=== PATIENT | female | born 1965 | race Caucasian/White ===

== ENCOUNTER 2022-11-27 22:42 | Inpatient (IN) | payer MEDICAID ==
[~2022-11-27] VITALS: Ht 165.1 cm; Wt 154.7 kg
[2022-11-28] MEDS ORDERED: NS IV 1000 ML 1,000 ML IV SCH ×2 (01:00→02:00)
[2022-11-28] MEDS ORDERED: PIPERACILLIN/Tazobactam 4.5 GM in NS (IVPB) 100 ML 100 ML IV ONE (01:00)
[2022-11-28 01:12] LABS: CLARITY,URINE CLEAR; COLOR,URINE YELLOW; PH,URINE 5.5 (5-9); PROTEIN,URINE NEGATIVE (NEGATIVE)
[2022-11-28 01:13] LABS: BACTERIA,URINE FEW /HPF; BILIRUBIN,URINE NEGATIVE (NEGATIVE); GLUCOSE, URINE (UA) 3+ (NEGATIVE); KETONES,URINE NEGATIVE (NEGATIVE); LEUKOCYTE ESTERASE ,URINE NEGATIVE (NEGATIVE); NITRITE,URINE POSITIVE (NEGATIVE)
[2022-11-28 01:32] LABS: BASOPHILS # (AUTO) 0.1 10^3/uL (0.0-0.1); BASOPHILS % (AUTO) 0 % (0-10); EOSINOPHILS # (AUTO) 0.1 10^3/uL (0.0-0.3); EOSINOPHILS % (AUTO) 1 % (0-10); HEMATOCRIT 45 % (35-52); HEMOGLOBIN 14.4 g/dL (11.5-16.0); LYMPHOCYTES # (AUTO) 3.1 10^3/uL (1.0-4.0); LYMPHOCYTES % (AUTO) 20 % (12-44); MEAN CORPUSCULAR HEMOGLOBIN 26 pg (25-34); MEAN CORPUSCULAR HGB CONC 32 g/dL (32-36); MEAN CORPUSCULAR VOLUME 82 fL (80-99); MEAN PLATELET VOLUME 10.9 fL (9.0-12.2); MONOCYTES # (AUTO) 0.9 10^3/uL (0.0-1.0); MONOCYTES % (AUTO) 6 % (0-12); NEUTROPHILS # (AUTO) 11.6 10^3/uL (1.8-7.8); NEUTROPHILS % (AUTO) 73 % (42-75); PLATELET COUNT 270 10^3/uL (130-400); WHITE BLOOD COUNT 15.9 10^3/uL (4.3-11.0)
[2022-11-28 01:43] LABS: ALBUMIN 3.7 GM/DL (3.2-4.5); POTASSIUM 4.5 MMOL/L (3.6-5.0); PROTHROMBIN TIME PATIENT 12.9 SEC (12.2-14.7)
[2022-11-28 01:47] LABS: BILIRUBIN,TOTAL 0.3 MG/DL (0.1-1.0)
[2022-11-28 01:49] LABS: CREATININE SERUM 1.23 MG/DL (0.60-1.30)
[2022-11-28 01:52] LABS: MAGNESIUM 1.9 MG/DL (1.6-2.4)
[2022-11-28 01:59] LABS: EOSINOPHILS % (MANUAL) 3 %; ERYTHROCYTE SEDIMENTATION RATE 4 MM/HR (0-30); LYMPHOCYTES % (MANUAL) 19 %; MONOCYTES % (MANUAL) 8 %; NEUTROPHILS % (MANUAL) 70 %; RBC MORPH NORMAL
[2022-11-28] MEDS ORDERED: inSUlin (REGULAR) HUMAN 1 UNIT/0.01 ML (CHARGE PER UNIT) IJ ONE (02:00)
[2022-11-28 02:25] LABS: AMPHETAMINE SCREEN, URINE NEGATIVE (NEGATIVE); BARBITURATE SCREEN URINE NEGATIVE (NEGATIVE); CANNABINOID SCREEN, URINE NEGATIVE (NEGATIVE); COCAINE SCREEN URINE NEGATIVE (NEGATIVE); METHADONE STAT NEGATIVE (NEGATIVE); OPIATE SCREEN URINE NEGATIVE (NEGATIVE); OXYCODONE STAT NEGATIVE (NEGATIVE); PROPOXYPHENE STAT NEGATIVE (NEGATIVE); TRICYCLIC ANTIDEPRESSANTS SCRE NEGATIVE (NEGATIVE)
[2022-11-28] MEDS ORDERED: diphenhydrAMINE INJ 50 MG/ML VIAL IVP ONE (02:30)
--- NOTE | 2022-11-28 02:49 | ED General ---
General Chief Complaint: Skin/Wound Problems Stated Complaint: ABD PAIN/ ABSCESS/FOUL SMELLING URINE Nursing Triage Note: PATIENT REPORTS TO ED FOR ABSCESS IN HER GROIN AREA. PER PATIENT ONE OF THEM IS DRAINAING GREEN AND REALLY HURTS. SHE HAS ALSO NOTED FOUL URINE SMELL RECENTLY. PATIENT STATES HER STOMACH IS KILLING HER WELL. PATIENT AMB. WITHOUT DIFFICUTLY. Source of Information: Patient (DIFFICULT HISTORIAN) History of Present Illness Date Seen by Provider: Nov 28, 2022 Time Seen by Provider: 00:50 Allergies and Home Medications Allergies Coded Allergies: Sulfa (Sulfonamide Antibiotics) (Verified Allergy, Intermediate, HIVES , 11/27/22) Penicillins (Verified Allergy, Unknown, 11/27/22) UNKNOWN, ISSUES A BABY diazepam (Verified Allergy, Unknown, MUSCLE STIFFNESS, 11/27/22) haloperidol (Verified Allergy, Unknown, MUSCLE STIFFNESS, 11/27/22) Past Ukvhosj-Pkqwmz-Adozik Hx Patient Social History Tobacco Use?: Yes Tobacco type used: Cigarettes Use of E-Cig and/or Vaping dev: No Substance use?: No Alcohol Use?: No Pt feels they are or have been: No Immunizations Up To Date Influenza Vaccine Up-to-Date: Yes; Up-to-Date First/Initial COVID19 Vaccinat: 2020 Second COVID19 Vaccination Jr: 2021 COVID19 Vaccine Inspector Floor Sub Assembly: unknown Past Medical History Surgery/Hospitalization HX: pmhx-[id number], HIDRADENITIS SUPPURATIVA, CHOLESTEROL SURG.-ABSCESS SURG., BREAST REDUCTION, RIGHT KNEE REPLACEMENT, HYST., GALLBLADDER, APPENDIX Physical Exam Vital Signs Vital Signs - First Documented 11/27/22 23:15 Temp 36.6 Pulse 104 Resp 20 B/P (MAP) 145/75 (98) Pulse Ox 95 O2 Delivery Room Air Capillary Refill : Less Than 3 Seconds Height, Weight, BMI Height: '" Weight: lbs. oz. kg; 54.00 BMI Method: Focused Exam Lactate Level 11/28/22 01:10: Lactic Acid Level 2.54*H Lactic Acid Level Laboratory Tests Test 11/28/22 01:10 Lactic Acid Level 2.54 MMOL/L (0.50-2.00) *H Progress/Results/Core Measures Suspected Sepsis SIRS Temperature: Pulse: 104 Respiratory Rate: 20 Laboratory Tests 11/28/22 01:10: White Blood Count 15.9H Blood Pressure 145 /75 Mean: 98 11/28/22 01:10: Lactic Acid Level 2.54*H Laboratory Tests 11/28/22 01:10: Creatinine 1.23, INR Comment 1.0, Platelet Count 270, Total Bilirubin 0.3 Results/Orders Lab Results Laboratory Tests Test 11/28/22 00:45 11/28/22 01:10 Range/Units Urine Color YELLOW Urine Clarity CLEAR Urine pH 5.5 5-9 Urine Specific [place] 1.010 L 1.016-1.022 Urine Protein NEGATIVE NEGATIVE Urine Glucose (UA) 3+ H NEGATIVE Urine Ketones NEGATIVE NEGATIVE Urine Nitrite POSITIVE H NEGATIVE Urine Bilirubin NEGATIVE NEGATIVE Urine Urobilinogen 0.2 < = 1.0 MG/DL Urine Leukocyte Esterase NEGATIVE NEGATIVE Urine RBC (Auto) NEGATIVE NEGATIVE Urine RBC NONE /HPF Urine WBC 10-25 H /HPF Urine Crystals NONE /LPF Urine Bacteria FEW H /HPF Urine Casts NONE /LPF Urine Mucus NEGATIVE /LPF Urine Culture Indicated CULTURE PENDING Urine Opiates Screen NEGATIVE NEGATIVE Urine Oxycodone Screen NEGATIVE NEGATIVE Urine Methadone Screen NEGATIVE NEGATIVE Urine Propoxyphene Screen NEGATIVE NEGATIVE Urine Barbiturates Screen NEGATIVE NEGATIVE Ur Tricyclic Antidepressants Screen NEGATIVE NEGATIVE Urine Phencyclidine Screen NEGATIVE NEGATIVE Urine Amphetamines Screen NEGATIVE NEGATIVE Urine Methamphetamines Screen NEGATIVE NEGATIVE Urine Benzodiazepines Screen NEGATIVE NEGATIVE Urine Cocaine Screen NEGATIVE NEGATIVE Urine Cannabinoids Screen NEGATIVE NEGATIVE White Blood Count 15.9 H 4.3-11.0 10^3/uL Red Blood Count 5.52 H 3.80-5.11 10^6/uL Hemoglobin 14.4 11.5-16.0 g/dL Hematocrit 45 35-52 % Mean Corpuscular Volume 82 80-99 fL Mean Corpuscular Hemoglobin 26 25-34 pg Mean Corpuscular Hemoglobin Concent 32 32-36 g/dL Red Cell Distribution Width 16.8 H 10.0-14.5 % Platelet Count 270 130-400 10^3/uL Mean Platelet Volume 10.9 9.0-12.2 fL Immature Granulocyte % (Auto) 0 % Neutrophils (%) (Auto) 73 42-75 % Lymphocytes (%) (Auto) 20 12-44 % Monocytes (%) (Auto) 6 0-12 % Eosinophils (%) (Auto) 1 0-10 % Basophils (%) (Auto) 0 0-10 % Neutrophils # (Auto) 11.6 H 1.8-7.8 10^3/uL Lymphocytes # (Auto) 3.1 1.0-4.0 10^3/uL Monocytes # (Auto) 0.9 0.0-1.0 10^3/uL Eosinophils # (Auto) 0.1 0.0-0.3 10^3/uL Basophils # (Auto) 0.1 0.0-0.1 10^3/uL Immature Granulocyte # (Auto) 0.1 0.0-0.1 10^3/uL Neutrophils % (Manual) 70 % Lymphocytes % (Manual) 19 % Monocytes % (Manual) 8 % Eosinophils % (Manual) 3 % Blood Morphology Comment NORMAL Erythrocyte Sedimentation Rate 4 0-30 MM/HR Prothrombin Time 12.9 12.2-14.7 SEC INR Comment 1.0 0.8-1.4 Activated Partial Thromboplast Time 32 24-35 SEC Sodium Level 130 L 135-145 MMOL/L Potassium Level 4.5 3.6-5.0 MMOL/L Chloride Level 95 L 98-107 MMOL/L Carbon Dioxide Level 23 21-32 MMOL/L Anion Gap 12 5-14 MMOL/L Blood Urea Nitrogen 14 7-18 MG/DL Creatinine 1.23 0.60-1.30 MG/DL Estimat Glomerular Filtration Rate 52 BUN/Creatinine Ratio 11 Glucose Level 592 *H 70-105 MG/DL Lactic Acid Level 2.54 *H 0.50-2.00 MMOL/L Calcium Level 9.0 8.5-10.1 MG/DL Corrected Calcium 9.2 8.5-10.1 MG/DL Magnesium Level 1.9 1.6-2.4 MG/DL Total Bilirubin 0.3 0.1-1.0 MG/DL Aspartate Amino Transf (AST/SGOT) 13 5-34 U/L Alanine Aminotransferase (ALT/SGPT) 24 0-55 U/L Alkaline Phosphatase 109 40-136 U/L C-Reactive Protein High Sensitivity 0.90 H 0.00-0.50 MG/DL Total Protein 7.0 6.4-8.2 GM/DL Albumin 3.7 3.2-4.5 GM/DL Serum Alcohol < 10 <10 MG/DL My Orders Orders - PARK HEAD DO Ed Iv/Invasive Line Start (11/28/22 00:51) Monitor-Rhythm Ecg Trace Only (11/28/22 00:51) Cbc With Automated Diff (11/28/22 00:51) Comprehensive Metabolic Panel (11/28/22 00:51) Hs C Reactive Protein (11/28/22 00:51) Magnesium (11/28/22 00:51) Ua Culture If Indicated (11/28/22 00:51) Erythrocyte Sedimentation Rate (11/28/22 00:51) Blood Culture (11/28/22 00:51) Urine Culture (11/28/22 00:51) Protime With Inr (11/28/22 00:51) Partial Thromboplastin Time (11/28/22 00:51) Chest 1 View, Ap/Pa Only (11/28/22 00:51) Ed Iv/Invasive Line Start (11/28/22 00:51) Ed Iv/Invasive Line Start (11/28/22 00:51) Vital Signs Adult Sepsis Patie Q15M (11/28/22 00:51) O2 (11/28/22 00:51) Remove Rings In Anticipation O (11/28/22 00:51) Wound Culture (11/28/22 00:51) Lactic Acid Analyzer (11/28/22 00:51) Ns Iv 1000 Ml (Ns Iv 1000 Ml) (11/28/22 01:00) Piperacillin/Tazobactam (Piperacillin/Ta (11/28/22 01:00) Vancomycin Injection (Vancomycin Injecti (11/28/22 01:00) Manual Differential (11/28/22 01:10) Ct Pelvis W (11/28/22 01:51) Insulin (Regular) Per Unit (Insulin (Reg (11/28/22 02:00) Ed Iv/Invasive Line Start (11/28/22 01:59) Ns Iv 1000 Ml (Ns Iv 1000 Ml) (11/28/22 02:00) Alcohol (11/28/22 01:59) Drug Screen Stat (Urine) (11/28/22 01:59) Diphenhydramine Injection (Diphenhydram (11/28/22 02:30) Medications Given in ED Current Medications Medications Dose Ordered Sig/Fuad Route Start Time Stop Time Status Last Admin Dose Admin Diphenhydramine HCl 25 mg ONCE ONCE IVP 11/28/22 02:30 11/28/22 02:31 DC 11/28/22 02:35 25 MG Insulin Human Regular 20 unit ONCE ONCE IJ 11/28/22 02:00 11/28/22 02:01 DC 11/28/22 02:38 20 UNIT Piperacillin Sod/ Tazobactam Sod 4.5 gm/Sodium Chloride 100 ml @ 200 mls/hr ONCE ONCE IV 11/28/22 01:00 11/28/22 01:29 DC 11/28/22 01:49 200 MLS/HR Vital Signs/I&O 11/27/22 23:15 Temp 36.6 Pulse 104 Resp 20 B/P (MAP) 145/75 (98) Pulse Ox 95 O2 Delivery Room Air Capillary Refill : Less Than 3 Seconds Blood Pressure Mean: 98 Departure Departure-Patient Inst. Referrals: NO,LOCAL PHYSICIAN (PCP/Family) Primary Care Physician PARK HEAD DO Nov 28, 2022 02:49
[2022-11-28] MEDS: VANCOMYCIN INJECTION 1,000 MG in NS (IVPB) 250 ML 250 ML IV SCH ×2 (02:59→04:16)
[2022-11-28] MEDS ORDERED: KETOROLAC INJ 30 MG/ML VIAL IVP ONE (04:45)
--- NOTE | 2022-11-28 06:26 | Diagnostic Imaging Report ---
EXAMINATION: Chest 1 view HISTORY: SEPSIS COMPARISON: None available. FINDINGS: Heart size and pulmonary vasculature are normal. There are patchy interstitial opacities within the mid and lower lungs. No pleural effusion or pneumothorax. Right-sided Jphm-T-jyrquuwg is present. Degenerative changes of the thoracic spine. Osseous structures are otherwise intact. IMPRESSION: 1. Patchy interstitial opacities within the mid and lower lungs could be seen with pulmonary edema or pneumonia. Dictated by: Dictated on workstation # [id number]
--- NOTE | 2022-11-28 06:41 | Diagnostic Imaging Report ---
PROCEDURE: CT pelvis without contrast. TECHNIQUE: Multiple contiguous axial images were obtained through the pelvis without the use of intravenous contrast. Sagittal and coronal reformations were performed. Auto Exposure Controls were utilized during the CT exam to meet ALARA standards for radiation dose reduction. INDICATION: Hidradenitis cellulitis versus abscess, infection. COMPARISON: None available. FINDINGS: Minimal vascular calcifications. Visualized portions of the aorta are non-aneurysmal. The visualized portions of the bilateral kidneys and ureters are unremarkable. The urinary bladder is unremarkable. The uterus is not visualized, likely surgically absent. No abnormal adnexal mass lesion. No bowel obstruction. Mild skin thickening and subcutaneous fat stranding is identified within the perineal and perianal soft tissues extending into the left greater than right inguinal regions. No discrete soft tissue gas. No focal fluid collection. No significant adenopathy. No free air or free fluid within the intraperitoneal pelvis. No acute osseous abnormality. Scattered degenerative changes within the osseous structures with disc bulge at L5/S1 with resulting at least mild central canal stenosis. IMPRESSION: Mild skin thickening and subcutaneous fat stranding within the perianal and perineal soft tissues extending into the bilateral inguinal regions. Though nonspecific, this most likely relates to underlying cellulitis. No definite focal fluid collection or soft tissue gas. Recommend direct visualization and clinical correlation. I agree with the preliminary interpretation. Dictated by: Dictated on workstation # [id number]
[2022-11-28 08:15] VITALS: BP 112/58
[2022-11-28] MEDS ORDERED: diphenhydrAMINE INJ 50 MG/ML VIAL IV PRN (08:30)
[2022-11-28] MEDS: NS IV 1000 ML 1,000 ML IV SCH ×3 (09:38→23:28)
[2022-11-28] MEDS: PIPERACILLIN/Tazobactam 4.5 GM in NS (IVPB) 100 ML 100 ML IV SCH ×2 (09:40→16:33)
--- NOTE | 2022-11-28 10:21 | Consultation - Surgery ---
GER[place] KAMARA 11/28/22 1020: History of Present Illness History of Present Illness Patient Consulted On(delfina/time) 11/28/22 10:13 Date Seen by Provider: Nov 28, 2022 Time Seen by Provider: 10:13 Reason for Visit: abscesses on groin, upper right arm, right foot History of Present Illness Pt states she has come in because of a couple abscesses on her groin. Pt states one of them has been there for 4 months and the other she noticed a week ago. She also has an abscess on her right foot and right upper arm. Pt states she has a history of these abscesses. The nurse relays she also has sepsis, UTI, cellulitis, diabetes. Pts last glucose level taken today was 312. Pt states her abscesses are painful. Allergies and Home Medications Allergies Coded Allergies: Sulfa (Sulfonamide Antibiotics) (Verified Allergy, Intermediate, HIVES , 11/27/22) Penicillins (Verified Allergy, Unknown, 11/27/22) UNKNOWN, ISSUES A BABY diazepam (Verified Allergy, Unknown, MUSCLE STIFFNESS, 11/27/22) haloperidol (Verified Allergy, Unknown, MUSCLE STIFFNESS, 11/27/22) Past Ltvsrge-Zuabvx-Wiuwjw Hx Patient Social History Smoking Status: Current Everyday Smoker Type Used: Cigars, Cigarettes 2nd Hand Smoke Exposure: Yes Recent Hopitalizations: No Alcohol Use?: No Have you traveled recently?: No Surgeries History of Surgeries: Yes Surgeries: Abdominal (gallbladder and appendix removed), Hysterectomy, Orthopedic (right knee replacement twice) Respiratory History of Respiratory Disorde: Yes Respiratory Disorders: COPD (pt says she has COPD) Cardiovascular History of Cardiac Disorders: No Neurological History of Neurological Disord: No Reproductive System : No Genitourinary History of Genitourinary Disor: Yes Genitourinary Disorders: UTI-Chronic Gastrointestinal History of Gastrointestinal Di: Yes Gastrointestinal Disorders: Gall Bladder Disease Musculoskeletal History of Musculoskeletal Dis: No Endocrine Endocrine Disorders: Diabetes, Insulin dep HEENT HEENT Disorders: Cataract Cancer History of Cancer: No Psychosocial Behavioral Health Disorders: Anxiety (pt says she takes Xanax), Depression Integumentary History of Skin or Integumenta: Yes Skin/Integumentary Disorders: Recent Skin Changes (labial abscesses, right upper arm abscess, right foot abscess) Family Medical History Significant Family History: Cancer (sister. unknown kind), Diabetes (dad) Review of Systems-General Constitutional: No chills, No fever EENTM: No hearing loss, No double vision Respiratory: cough; No short of breath Cardiovascular: No chest pain, No palpitations Gastrointestinal: abdominal pain (pt says her whole stomach hurts), nausea, vomiting (pt says she has vomited off and on for the last week and a half) : No Skin: change in color; No hx of skin cancer; lesions (abscesses on labia and right upper arm and right foot) Psychiatric/Neurological: Anxiety, Depressed, Numbness (peripheral neuropathy in her feet) Physical Exam-General Problems Physical Exam Vital Signs Vital Signs - First Documented 11/27/22 11/28/22 23:15 01:10 Temp 36.6 Pulse 104 Resp 20 B/P (MAP) 145/75 (98) Pulse Ox 95 O2 Delivery Room Air O2 Flow Rate 4.00 Capillary Refill : Less Than 3 Seconds General Appearance: mild distress, obese (very) Neck: non-tender Respiratory: lungs clear, no respiratory distress, no accessory muscle use Cardiovascular: no JVD, no murmur, tachycardia (HR 104) Peripheral Pulses: 2+ Carotid (R), 2+ Carotid (L), 2+ Dorsalis Pedis (R), 2+ Left Dors-Pedis (L), 2+ Radial Pulses (R), 2+ Radial Pulses (L) Gastrointestinal: non tender, soft, other (no tenderness on palpation but pt states her abdomen just hurts in general all over) Extremities: other (abscess on right upper arm and right foot) Neurologic/Psychiatric: alert, oriented x 3 Skin: warm/dry, other (abscesses on labia (nurse saw), right upper arm, and right foot) Data Review Labs Laboratory Tests 11/28/22 00:45: Urine Color YELLOW, Urine Clarity CLEAR, Urine pH 5.5, Urine Specific [place] 1.010L, Urine Protein NEGATIVE, Urine Glucose (UA) 3+H, Urine Ketones NEGATIVE, Urine Nitrite POSITIVEH, Urine Bilirubin NEGATIVE, Urine Urobilinogen 0.2, Urine Leukocyte Esterase NEGATIVE, Urine RBC (Auto) NEGATIVE, Urine RBC NONE, Urine WBC 10-25H, Urine Crystals NONE, Urine Bacteria FEWH, Urine Casts NONE, Urine Mucus NEGATIVE, Urine Culture Indicated CULTURE PENDING, Urine Opiates Screen NEGATIVE, Urine Oxycodone Screen NEGATIVE, Urine Methadone Screen NEGATIVE, Urine Propoxyphene Screen NEGATIVE, Urine Barbiturates Screen NEGATIVE, Ur Tricyclic Antidepressants Screen NEGATIVE, Urine Phencyclidine Screen NEGATIVE, Urine Amphetamines Screen NEGATIVE, Urine Methamphetamines Screen NEGATIVE, Urine Benzodiazepines Screen NEGATIVE, Urine Cocaine Screen NEGATIVE, Urine Cannabinoids Screen NEGATIVE 11/28/22 01:10: White Blood Count 15.9H, Red Blood Count 5.52H, Hemoglobin 14.4, Hematocrit 45, Mean Corpuscular Volume 82, Mean Corpuscular Hemoglobin 26, Mean Corpuscular Hemoglobin Concent 32, Red Cell Distribution Width 16.8H, Platelet Count 270, Mean Platelet Volume 10.9, Immature Granulocyte % (Auto) 0, Neutrophils (%) (Auto) 73, Lymphocytes (%) (Auto) 20, Monocytes (%) (Auto) 6, Eosinophils (%) (Auto) 1, Basophils (%) (Auto) 0, Neutrophils # (Auto) 11.6H, Lymphocytes # (Auto) 3.1, Monocytes # (Auto) 0.9, Eosinophils # (Auto) 0.1, Basophils # (Auto) 0.1, Immature Granulocyte # (Auto) 0.1, Neutrophils % (Manual) 70, Lymphocytes % (Manual) 19, Monocytes % (Manual) 8, Eosinophils % (Manual) 3, Blood Morphology Comment NORMAL, Erythrocyte Sedimentation Rate 4, Prothrombin Time 12.9, INR Comment 1.0, Activated Partial Thromboplast Time 32, Sodium Level 130L, Potassium Level 4.5, Chloride Level 95L, Carbon Dioxide Level 23, Anion Gap 12, Blood Urea Nitrogen 14, Creatinine 1.23, Estimat Glomerular Filtration Rate 52, BUN/Creatinine Ratio 11, Glucose Level 592*H, Lactic Acid Level 2.54*H, Calcium Level 9.0, Corrected Calcium 9.2, Magnesium Level 1.9, Total Bilirubin 0.3, Aspartate Amino Transf (AST/SGOT) 13, Alanine Aminotransferase (ALT/SGPT) 24, Alkaline Phosphatase 109, C-Reactive Protein High Sensitivity 0.90H, Total Protein 7.0, Albumin 3.7, Serum Alcohol < 10 11/28/22 04:42: Lactic Acid Level 2.53*H, Glucometer 159H 11/28/22 07:30: Lactic Acid Level 0.99 Assessment/Plan Assessment/Plan Assessment/Plan Labial abscess - incision and drainage Right upper arm abscess - conservative management, warm compress, keep clean Right foot abscess - conservative management, warm compress, keep clean Diabetes, glucose currently 312 UTI Sepsis Smoking Incise and drain the labial abscesses and transfer to medical management for other chronic conditions. TOSHIA WEI DO 11/28/22 1537: History of Present Illness History of Present Illness Time Seen by Provider: 13:21 History of Present Illness Surgery asked to consult regarding multiple abscesses. HPI per ED: PATIENT REPORTS TO ED FOR ABSCESS IN HER GROIN AREA. PER PATIENT ONE OF THEM IS DRAINAING GREEN AND REALLY HURTS. SHE HAS ALSO NOTED FOUL URINE SMELL RECENTLY. PATIENT STATES HER STOMACH IS KILLING HER WELL. PATIENT AMB. WITHOUT DIFFICUTLY. When I saw pt this afternoon, she was sitting up in bed eating lunch. Main complaint was of the pain in the left labial area. States her pain is not being controlled. She rates the pain as at least 8 out of 10. She states she gets these all the time. Allergies and Home Medications Allergies Coded Allergies: Sulfa (Sulfonamide Antibiotics) (Verified Allergy, Intermediate, HIVES , 11/27/22) Penicillins (Verified Allergy, Unknown, 11/27/22) UNKNOWN, ISSUES A BABY diazepam (Verified Allergy, Unknown, MUSCLE STIFFNESS, 11/27/22) haloperidol (Verified Allergy, Unknown, MUSCLE STIFFNESS, 11/27/22) Patient Home Medication List Home Medication List Reviewed: Yes Past Rntfpuu-Epcuvs-Fhwdha Hx Patient Social History Smoking Status: Current Everyday Smoker 2nd Hand Smoke Exposure: Yes Recent Hopitalizations: No Have you traveled recently?: No Surgeries History of Surgeries: Yes Surgeries: Abdominal (gallbladder and appendix removed), Hysterectomy, Orthopedic (right knee replacement twice) Respiratory History of Respiratory Disorde: Yes Respiratory Disorders: COPD (pt says she has COPD) Cardiovascular History of Cardiac Disorders: No Neurological History of Neurological Disord: No Reproductive System : No Genitourinary History of Genitourinary Disor: Yes Genitourinary Disorders: UTI-Chronic Gastrointestinal History of Gastrointestinal Di: Yes Gastrointestinal Disorders: Gall Bladder Disease Musculoskeletal History of Musculoskeletal Dis: No Endocrine History of Endocrine Disorders: Yes Endocrine Disorders: Diabetes, Insulin dep HEENT History of HEENT Disorders: Yes HEENT Disorders: Cataract Hearing Impairment: Denies Cancer History of Cancer: No Psychosocial History of Psychiatric Problem: Yes Behavioral Health Disorders: Anxiety (pt says she takes Xanax), Depression Integumentary History of Skin or Integumenta: Yes Skin/Integumentary Disorders: Recent Skin Changes (labial abscesses, right upper arm abscess, right foot abscess) Family Medical History Significant Family History: Cancer (sister. unknown kind), Diabetes (dad) Review of Systems-General Constitutional: No chills, No fever EENTM: No hearing loss, No double vision Respiratory: cough; No short of breath Cardiovascular: No chest pain, No palpitations Gastrointestinal: abdominal pain (pt says her whole stomach hurts), nausea, vomiting (pt says she has vomited off and on for the last week and a half) : No Skin: change in color; No hx of skin cancer; lesions (abscesses on labia and right upper arm and right foot) Psychiatric/Neurological: Anxiety, Depressed, Numbness (peripheral neuropathy in her feet); Denies Tremors Physical Exam-General Problems Physical Exam General Appearance: mild distress, obese (super morbidly) Eyes: Bilateral Eye PERRL, Bilateral Eye EOMI HEENT: pharynx normal; No scleral icterus (R), No scleral icterus (L) Neck: non-tender, supple Respiratory: lungs clear, normal breath sounds, no respiratory distress, no accessory muscle use Cardiovascular: no murmur, tachycardia (HR 104) Gastrointestinal: non tender, soft, other (no tenderness on palpation but pt states her abdomen just hurts in general all over) Back: no CVA tenderness, no vertebral tenderness Extremities: no pedal edema, no calf tenderness, other (abscess on right upper arm and right foot) Neurologic/Psychiatric: alert, oriented x 3 Skin: warm/dry, other (abscesses on labia left side; with erythema, swelling and tender to palapation. Under right upper arm is healing abscess with necrotic center. Has signs of hidradentitis in both axilla, and right foot) Data Review Radiology Date of Exam:11/28/22 CT PELVIS WO PROCEDURE: CT pelvis without contrast. TECHNIQUE: Multiple contiguous axial images were obtained through the pelvis without the use of intravenous contrast. Sagittal and coronal reformations were performed. Auto Exposure Controls were utilized during the CT exam to meet ALARA standards for radiation dose reduction. INDICATION: Hidradenitis cellulitis versus abscess, infection. COMPARISON: None available. FINDINGS: Minimal vascular calcifications. Visualized portions of the aorta are non-aneurysmal. The visualized portions of the bilateral kidneys and ureters are unremarkable. The urinary bladder is unremarkable. The uterus is not visualized, likely surgically absent. No abnormal adnexal mass lesion. No bowel obstruction. Mild skin thickening and subcutaneous fat stranding is identified within the perineal and perianal soft tissues extending into the left greater than right inguinal regions. No discrete soft tissue gas. No focal fluid collection. No significant adenopathy. No free air or free fluid within the intraperitoneal pelvis. No acute osseous abnormality. Scattered degenerative changes within the osseous structures with disc bulge at L5/S1 with resulting at least mild central canal stenosis. IMPRESSION: Mild skin thickening and subcutaneous fat stranding within the perianal and perineal soft tissues extending into the bilateral inguinal regions. Though nonspecific, this most likely relates to underlying cellulitis. No definite focal fluid collection or soft tissue gas. Recommend direct visualization and clinical correlation. I agree with the preliminary interpretation. Dictated on workstation # [id number] Dict: 11/28/22 0624 Trans: 11/28/22 [id number] [id number] Interpreted by: ARACELIS HERMAN MD Assessment/Plan Assessment/Plan Assessment/Plan Labial abscess - incision and drainage Right upper arm abscess - conservative management, warm compress, keep clean Right foot abscess - conservative management, warm compress, keep clean Diabetes, glucose currently 312 UTI Sepsis Smoking Incise and drain the labial abscesses and transfer to medical management for other chronic conditions. Continue with IV ABX and will add some IV pain meds. Supervisory-Addendum Brief Verification & Attestation Participated in pt care: history, MDM, physical Personally performed: exam, history, MDM, supervision of care Care discussed with: Medical Student Procedures: n/a Verification and Attestation of Medical Student E/M Service A medical student performed and documented this service. I then reviewed and verified all information documented by the medical student and made modifications to such information, when appropriate. I personally performed a physical exam, medical decision making and then discussed any differences between the notes and made revisions as necessary to create one note. Toshia Wei , 11/28/22 , 15:47 [place] KAMARA Nov 28, 2022 10:20 TOSHIA WEI DO Nov 28, 2022 15:37
[2022-11-28] MEDS ORDERED: inSUlin ASPART 1 UNIT/0.01 ML (PER UNIT) SC SCH (11:00)
[2022-11-28] MEDS: VANCOMYCIN 1500MG/300ML PREMIX IV SCH ×2 (11:01→23:28)
[2022-11-28 11:23] VITALS: BP 131/63
[2022-11-28] MEDS ORDERED: NICOTINE 14 MG PATCH TD ONE (12:30)
[2022-11-28] MEDS ORDERED: PRAMIPEXOLE 0.5 MG TABLET PO ONE (12:30)
[2022-11-28] MEDS ORDERED: inSUlin DETERMIR 1 UNIT/0.01 ML (CHARGE PER UNIT) SQ ONE (12:30)
[2022-11-28 14:13] VITALS: BP 131/63
[2022-11-28] MEDS: oxyCODONE IMMEDIATE RELEASE 5 MG TABLET PO PRN ×2 (14:13→20:19)
[2022-11-28] MEDS: PREGABALIN 100 MG CAPSULE PO SCH ×3 (14:13→20:16)
[2022-11-28] MEDS: inSUlin ASPART 1 UNIT/0.01 ML (PER UNIT) SC SCH ×3 (15:14→20:24)
[2022-11-28] MEDS: ACETAMINOPHEN 500 MG TABLET PO PRN (15:15)
[2022-11-28] MEDS: ONDANSETRON INJECTION 4 MG/2 ML (SDV) IV PRN (15:15)
--- NOTE | 2022-11-28 15:50 | Consultation - Surgery ---
History of Present Illness History of Present Illness Patient Consulted On(delfina/time) 11/28/22 15:48 Reason for Visit: abscesses on groin, upper right arm, right foot History of Present Illness Surgery asked to consult regarding multiple abscesses. HPI per ED: PATIENT REPORTS TO ED FOR ABSCESS IN HER GROIN AREA. PER PATIENT ONE OF THEM IS DRAINAING GREEN AND REALLY HURTS. SHE HAS ALSO NOTED FOUL URINE SMELL RECENTLY. PATIENT STATES HER STOMACH IS KILLING HER WELL. PATIENT AMB. WITHOUT DIFFICUTLY. When I saw pt this afternoon, she was sitting up in bed eating lunch. Main complaint was of the pain in the left labial area. States her pain is not being controlled. She rates the pain as at least 8 out of 10. She states she gets these all the time. Allergies and Home Medications Allergies Coded Allergies: Sulfa (Sulfonamide Antibiotics) (Verified Allergy, Intermediate, HIVES , 11/27/22) Penicillins (Verified Allergy, Unknown, 11/27/22) UNKNOWN, ISSUES A BABY diazepam (Verified Allergy, Unknown, MUSCLE STIFFNESS, 11/27/22) haloperidol (Verified Allergy, Unknown, MUSCLE STIFFNESS, 11/27/22) Past Dpwzfmd-Uaauye-Tyauww Hx Patient Social History Smoking Status: Current Everyday Smoker Type Used: Cigars, Cigarettes 2nd Hand Smoke Exposure: Yes Recent Hopitalizations: No Alcohol Use?: No Have you traveled recently?: No Surgeries History of Surgeries: Yes Surgeries: Abdominal (gallbladder and appendix removed), Hysterectomy, Orthopedic (right knee replacement twice) Respiratory History of Respiratory Disorde: Yes Respiratory Disorders: COPD (pt says she has COPD) Cardiovascular History of Cardiac Disorders: No Neurological History of Neurological Disord: No Reproductive System : No Genitourinary History of Genitourinary Disor: Yes Genitourinary Disorders: UTI-Chronic Gastrointestinal History of Gastrointestinal Di: Yes Gastrointestinal Disorders: Gall Bladder Disease Musculoskeletal History of Musculoskeletal Dis: No Endocrine History of Endocrine Disorders: Yes Endocrine Disorders: Diabetes, Insulin dep HEENT History of HEENT Disorders: Yes HEENT Disorders: Cataract Hearing Impairment: Denies Cancer History of Cancer: No Psychosocial History of Psychiatric Problem: Yes Behavioral Health Disorders: Anxiety (pt says she takes Xanax), Depression Integumentary History of Skin or Integumenta: Yes Skin/Integumentary Disorders: Recent Skin Changes (labial abscesses, right upper arm abscess, right foot abscess) Family Medical History Significant Family History: Cancer (sister. unknown kind), Diabetes (dad) Physical Exam-General Problems Physical Exam Vital Signs Vital Signs - First Documented 11/27/22 11/28/22 23:15 01:10 Temp 36.6 Pulse 104 Resp 20 B/P (MAP) 145/75 (98) Pulse Ox 95 O2 Delivery Room Air O2 Flow Rate 4.00 Capillary Refill : Less Than 3 Seconds Data Review Labs Laboratory Tests 11/28/22 00:45: Urine Color YELLOW, Urine Clarity CLEAR, Urine pH 5.5, Urine Specific [place] 1.010L, Urine Protein NEGATIVE, Urine Glucose (UA) 3+H, Urine Ketones NEGATIVE, Urine Nitrite POSITIVEH, Urine Bilirubin NEGATIVE, Urine Urobilinogen 0.2, Urine Leukocyte Esterase NEGATIVE, Urine RBC (Auto) NEGATIVE, Urine RBC NONE, Urine WBC 10-25H, Urine Crystals NONE, Urine Bacteria FEWH, Urine Casts NONE, Urine Mucus NEGATIVE, Urine Culture Indicated CULTURE PENDING, Urine Opiates Screen NEGATIVE, Urine Oxycodone Screen NEGATIVE, Urine Methadone Screen NEGATIVE, Urine Propoxyphene Screen NEGATIVE, Urine Barbiturates Screen NEGATIVE, Ur Tricyclic Antidepressants Screen NEGATIVE, Urine Phencyclidine Screen NEGATIVE, Urine Amphetamines Screen NEGATIVE, Urine Methamphetamines Screen NEGATIVE, Urine Benzodiazepines Screen NEGATIVE, Urine Cocaine Screen NEGATIVE, Urine Cannabinoids Screen NEGATIVE 11/28/22 01:10: White Blood Count 15.9H, Red Blood Count 5.52H, Hemoglobin 14.4, Hematocrit 45, Mean Corpuscular Volume 82, Mean Corpuscular Hemoglobin 26, Mean Corpuscular Hemoglobin Concent 32, Red Cell Distribution Width 16.8H, Platelet Count 270, Mean Platelet Volume 10.9, Immature Granulocyte % (Auto) 0, Neutrophils (%) (Auto) 73, Lymphocytes (%) (Auto) 20, Monocytes (%) (Auto) 6, Eosinophils (%) (Auto) 1, Basophils (%) (Auto) 0, Neutrophils # (Auto) 11.6H, Lymphocytes # (Auto) 3.1, Monocytes # (Auto) 0.9, Eosinophils # (Auto) 0.1, Basophils # (Auto) 0.1, Immature Granulocyte # (Auto) 0.1, Neutrophils % (Manual) 70, Lymphocytes % (Manual) 19, Monocytes % (Manual) 8, Eosinophils % (Manual) 3, Blood Morphology Comment NORMAL, Erythrocyte Sedimentation Rate 4, Prothrombin Time 12.9, INR Comment 1.0, Activated Partial Thromboplast Time 32, Sodium Level 130L, Potassium Level 4.5, Chloride Level 95L, Carbon Dioxide Level 23, Anion Gap 12, Blood Urea Nitrogen 14, Creatinine 1.23, Estimat Glomerular Filtration Rate 52, BUN/Creatinine Ratio 11, Glucose Level 592*H, Lactic Acid Level 2.54*H, Calcium Level 9.0, Corrected Calcium 9.2, Magnesium Level 1.9, Total Bilirubin 0.3, Aspartate Amino Transf (AST/SGOT) 13, Alanine Aminotransferase (ALT/SGPT) 24, Alkaline Phosphatase 109, C-Reactive Protein High Sensitivity 0.90H, Total Protein 7.0, Albumin 3.7, Serum Alcohol < 10 11/28/22 04:42: Lactic Acid Level 2.53*H, Glucometer 159H 11/28/22 07:30: Lactic Acid Level 0.99 11/28/22 10:41: Glucometer 312H 11/28/22 15:06: Glucometer 286H Microbiology 11/28/22 Urine Culture - Preliminary, Resulted Probable E.coli Radiology Date of Exam:11/28/22 CT PELVIS WO PROCEDURE: CT pelvis without contrast. TECHNIQUE: Multiple contiguous axial images were obtained through the pelvis without the use of intravenous contrast. Sagittal and coronal reformations were performed. Auto Exposure Controls were utilized during the CT exam to meet ALARA standards for radiation dose reduction. INDICATION: Hidradenitis cellulitis versus abscess, infection. COMPARISON: None available. FINDINGS: Minimal vascular calcifications. Visualized portions of the aorta are non-aneurysmal. The visualized portions of the bilateral kidneys and ureters are unremarkable. The urinary bladder is unremarkable. The uterus is not visualized, likely surgically absent. No abnormal adnexal mass lesion. No bowel obstruction. Mild skin thickening and subcutaneous fat stranding is identified within the perineal and perianal soft tissues extending into the left greater than right inguinal regions. No discrete soft tissue gas. No focal fluid collection. No significant adenopathy. No free air or free fluid within the intraperitoneal pelvis. No acute osseous abnormality. Scattered degenerative changes within the osseous structures with disc bulge at L5/S1 with resulting at least mild central canal stenosis. IMPRESSION: Mild skin thickening and subcutaneous fat stranding within the perianal and perineal soft tissues extending into the bilateral inguinal regions. Though nonspecific, this most likely relates to underlying cellulitis. No definite focal fluid collection or soft tissue gas. Recommend direct visualization and clinical correlation. I agree with the preliminary interpretation. Dictated on workstation # [id number] Dict: 11/28/22623 Trans: 11/28/22640 [id number] Interpreted by: ARACELIS HERMAN MD Assessment/Plan Assessment/Plan Assessment/Plan Labial abscess - incision and drainage Right upper arm abscess - conservative management, warm compress, keep clean Right foot abscess - conservative management, warm compress, keep clean Diabetes, glucose currently 312 UTI Sepsis Smoking Incise and drain the labial abscesses and transfer to medical management for other chronic conditions. Continue with IV ABX and will add some IV pain meds. TOSHIA ALDRICH Nov 28, 2022 15:50 ,MarNov 29, 2022 14:01
[2022-11-28] MEDS ORDERED: morphine INJ 4 MG/ML 1 ML (VIAL/SYRINGE) IVP PRN (16:00)
[2022-11-28 16:43] VITALS: BP 121/62
--- NOTE | 2022-11-28 17:35 | History & Physical-Hospitalist ---
History of Present Illness HPI/Chief Complaint Nuvia Coffman is a 57 year old female with PMH HTN, T2DM on insulin, HLD, GERD, anxiety, depression, super obesity, who presented with groin pain. She reports having abscesses in her groin for the past 4 months. She has developed new lesions in her groin and on her arm. She reports drainage from one of them. She denies fevers and chills. She has had abdominal pain. She denies diarrhea. She has had nausea and vomiting. She denies chest pain and shortness of breath. Source: patient Exam Limitations: no limitations Date Seen 11/28/22 Time Seen by a Provider: 12:20 Attending Physician No,Local Physician PCP Admitting Physician: Chante Marion MD Attending Physician: Chante Marion MD Referring Physician Date of Admission Nov 28, 2022 at 08:03 Home Medications & Allergies Home Medications Reviewed patient Home Medication Reconciliation performed by pharmacy medication reconciliations water restoration technician and/or nursing. Patients Allergies have been reviewed. Allergies Allergies Coded Allergies Sulfa (Sulfonamide Antibiotics) (Verified Allergy, Intermediate, HIVES , 11/27/22) Penicillins (Verified Allergy, Unknown, 11/27/22) UNKNOWN, ISSUES A BABY diazepam (Verified Allergy, Unknown, MUSCLE STIFFNESS, 11/27/22) haloperidol (Verified Allergy, Unknown, MUSCLE STIFFNESS, 11/27/22) Past Jvdidwo-Xjstnn-Qjycmy Hx Patient Social History Tobacco Use?: Yes Tobacco type used: Cigarettes Smoking Status: Current Everyday Smoker Smokeless Tobacco Frequency: Never a User Use of E-Cig and/or Vaping dev: No Substance use?: No Alcohol Use?: No Pt feels they are or have been: No Immunizations Up To Date First/Initial COVID19 Vaccinat: 2020 Second COVID19 Vaccination Jr: 2021 Tetanus Booster (TDap): Less Than 5 Years Current Status status: No Advance Directives: No Communicates: Verbally Primary Language: Palauan Preferred Spoken Language: Palauan Is interpretation needed?: No Implanted or Applied Medical D: Port-a-cath Past Medical History Surgeries: Abdominal (gallbladder and appendix removed), Hysterectomy, Orthopedic (right knee replacement twice) COPD (pt says she has COPD) UTI-Chronic Gall Bladder Disease Diabetes, Insulin dep Cataract Hearing Impairment: Denies Anxiety (pt says she takes Xanax), Depression Recent Skin Changes (labial abscesses, right upper arm abscess, right foot abscess) Family Medical History Cancer (sister. unknown kind), Diabetes (dad) Review of Systems Constitutional: malaise Respiratory: no symptoms reported Cardiovascular: no symptoms reported Gastrointestinal: abdominal pain, nausea, vomiting Physical Exam Physical Exam Vital Signs Vital Signs - First Documented 11/27/22 11/28/22 23:15 01:10 Temp 36.6 Pulse 104 Resp 20 B/P (MAP) 145/75 (98) Pulse Ox 95 O2 Delivery Room Air O2 Flow Rate 4.00 Capillary Refill : Less Than 3 Seconds Height, Weight, BMI Height: '" Weight: lbs. oz. kg; 54.77 BMI Method: General Appearance: No Apparent Distress, Obese HEENT: PERRL/EOMI, Pharynx Normal Neck: Normal Inspection, Supple Respiratory: No Respiratory Distress, Decreased Breath Sounds Cardiovascular: No Murmur, Tachycardia Gastrointestinal: Normal Bowel Sounds, Soft Extremity: Pedal Edema Neurologic/Psychiatric: Alert, No Motor/Sensory Deficits Skin: Other (labial and groin lesions tender and erythematous) Results Results/Procedures Labs Laboratory Tests 11/28/22 01:10 Patient resulted labs reviewed. Imaging: Reviewed Imaging Report Assessment/Plan Admission Diagnosis Sepsis due to cellulitis and abscess Admission Status: Inpatient Order (span 2 midnights) Reason for Inpatient Admission: IV antibiotics Surgical evaluation Assessment and Plan Sepsis Cellulitis Abscess UTI Vancomycin and Merrem Surgery consulted, planning for I&D tomorrow T2DM Severe insulin resistance Decresased dose insulin regimen Levemir 50 units BID Novolog 20 units with meals Sliding scale C Neuropathy Chronic pain Continue home meds HTN HLD Anxiety Depression Continue home meds once med rec completed DVT prophylaxis: Lovenox held for procedure, SCDs Diagnosis/Problems Diagnosis/Problems (1) Severe sepsis Status: Acute (2) Abscess Status: Acute (3) Cellulitis Status: Acute (4) Lactic acidosis Status: Acute (5) T2DM (type 2 diabetes mellitus) Status: Acute Qualifiers: Diabetes mellitus group home insulin use: with intermodal customer service use Diabetes mellitus complication status: with hyperglycemia Qualified Codes: E11.65 - Type 2 diabetes mellitus with hyperglycemia; Z79.4 - skilled nursing (current) use of insulin (6) HTN (hypertension) Status: Chronic (7) HLD (hyperlipidemia) Status: Chronic (8) Anxiety and depression Status: Chronic (9) Super obesity Status: Chronic CHANTE MARION MD Nov 28, 2022 17:35
[2022-11-28 19:05] VITALS: BP 134/74
[2022-11-28] MEDS: PRAMIPEXOLE 0.5 MG TABLET PO SCH (20:16)
[2022-11-28] MEDS: inSUlin DETERMIR 1 UNIT/0.01 ML (CHARGE PER UNIT) SQ SCH (20:24)
[2022-11-28] MEDS: RT-Ipratropium/Albuterol NEB 3 ML VIAL INH SCH (20:33)
[2022-11-28] MEDS: KETOROLAC INJ 30 MG/ML VIAL IV PRN (21:17)
[2022-11-28 23:28] VITALS: BP 134/74
[2022-11-29] MEDS: PIPERACILLIN/Tazobactam 4.5 GM in NS (IVPB) 100 ML 100 ML IV SCH ×3 (01:07→16:41)
[2022-11-29 03:21] VITALS: BP 164/86
[2022-11-29] MEDS: KETOROLAC INJ 30 MG/ML VIAL IV PRN ×2 (03:27→09:44)
[2022-11-29] MEDS: NS IV 1000 ML 1,000 ML IV SCH ×3 (05:02→17:34)
[2022-11-29 05:47] LABS: BASOPHILS # (AUTO) 0.1 10^3/uL (0.0-0.1); BASOPHILS % (AUTO) 0 % (0-10); EOSINOPHILS # (AUTO) 0.2 10^3/uL (0.0-0.3); EOSINOPHILS % (AUTO) 1 % (0-10); HEMATOCRIT 43 % (35-52); HEMOGLOBIN 13.3 g/dL (11.5-16.0); LYMPHOCYTES # (AUTO) 2.5 10^3/uL (1.0-4.0); LYMPHOCYTES % (AUTO) 18 % (12-44); MEAN CORPUSCULAR HEMOGLOBIN 27 pg (25-34); MEAN CORPUSCULAR HGB CONC 31 g/dL (32-36); MEAN CORPUSCULAR VOLUME 87 fL (80-99); MEAN PLATELET VOLUME 10.7 fL (9.0-12.2); MONOCYTES # (AUTO) 0.8 10^3/uL (0.0-1.0); MONOCYTES % (AUTO) 5 % (0-12); NEUTROPHILS # (AUTO) 10.7 10^3/uL (1.8-7.8); NEUTROPHILS % (AUTO) 75 % (42-75); PLATELET COUNT 230 10^3/uL (130-400); WHITE BLOOD COUNT 14.2 10^3/uL (4.3-11.0)
[2022-11-29 06:10] LABS: ALBUMIN 3.3 GM/DL (3.2-4.5); BILIRUBIN,TOTAL 0.2 MG/DL (0.1-1.0); CALCIUM 8.7 MG/DL (8.5-10.1); CREATININE SERUM 0.83 MG/DL (0.60-1.30); POTASSIUM 4.9 MMOL/L (3.6-5.0); TOTAL PROTEIN 6.1 GM/DL (6.4-8.2)
[2022-11-29] MEDS: inSUlin ASPART 1 UNIT/0.01 ML (PER UNIT) SC SCH ×7 (06:19→22:13)
--- NOTE | 2022-11-29 07:09 | Progress Note - Surgery ---
GER[place]IA KAMARA 11/29/22 0709: Subjective Date Seen by a Provider: Nov 29, 2022 Time Seen by a Provider: 07:04 Subjective/Events-last exam Pt says she's the same since yesterday, still in pain in her groin. Pt rates the pain at 8.5/10. Pt says her groin abscesses are still draining a yellowish-green color. Her nurse says she looked at the groin abscesses around 21:00 and did not see any drainage, just looked like some nodules. Pt says her last BM was a week and a half ago, but pt says it is normal for her to only go once every few weeks. Pt has been NPO since midnight in case of a procedure. The nurse says the pt has only been given Toradol in the last 24 hours. When further questioning the pt about whether her right upper arm abscess or right foot lesion bothers her, she states they are both very painful and the right upper arm one keeps opening and draining when she moves. Upon inspection, the lesions look the same as yesterday. And the pt also stated her neuropathy makes it so she can't feel her feet. Review of Systems General: No Chills, No Night Sweats HEENT: Head Aches (since 6 last night); No Visual Changes Pulmonary: No Dyspnea; Cough Cardiovascular: No: Chest Pain, Palpitations Gastrointestinal: No: Nausea, Vomiting, Abdominal Pain Genitourinary: No Dysuria, No Frequency Neurological: Numbness (neuropathy in feet); No: Weakness Focused Exam Lactate Level 11/28/22 01:10: Lactic Acid Level 2.54*H 11/28/22 04:42: Lactic Acid Level 2.53*H 11/28/22 07:30: Lactic Acid Level 0.99 Objective Exam Vital Signs Date Time Temp Pulse Resp B/P (MAP) Pulse Ox O2 Delivery O2 Flow Rate FiO2 11/29/22 03:57 36.2 11/29/22 03:21 36.2 80 20 164/86 (112) 96 Nasal Cannula 4.00 11/29/22 01:00 77 11/28/22 23:28 36.1 77 20 134/74 (94) 97 Nasal Cannula 4.00 11/28/22 22:14 36.3 11/28/22 20:33 94 Nasal Cannula 4.00 11/28/22 20:15 94 Nasal Cannula 4.00 11/28/22 19:05 36.3 80 20 134/74 (94) 92 Nasal Cannula 5.00 11/28/22 19:00 81 11/28/22 18:54 Nasal Cannula 4.00 11/28/22 16:43 36.5 77 18 121/62 (81) 95 Nasal Cannula 5.00 11/28/22 14:13 36.6 78 91 11/28/22 12:32 78 11/28/22 11:23 36.6 78 18 131/63 (85) 91 Nasal Cannula 4.00 11/28/22 09:47 93 Nasal Cannula 4.00 11/28/22 08:52 91 11/28/22 08:30 Nasal Cannula 4.00 11/28/22 08:15 36.5 87 18 112/58 (76) 93 Nasal Cannula 4.00 11/28/22 07:52 85 16 107/71 92 Room Air I & O 11/29/22 07:00 Intake Total 4210 ml Balance 4210 ml Capillary Refill : Less Than 3 Seconds General Appearance: No Apparent Distress, Obese Neck: Non Tender; No JVD Respiratory: Normal Breath Sounds, No Respiratory Distress Cardiovascular: Regular Rate, Rhythm (HR 80), No Murmur Peripheral Pulses: 2+ Carotid (R), 2+ Carotid (L), 2+ Dorsalis Pedis (R), 2+ Left Dors-Pedis (L), 2+ Radial Pulses (R), 2+ Radial Pulses (L) Gastrointestinal: soft, tenderness (LLQ only to deep palpation) Extremity: Other (right foot has lesion of possible abscess or wart) Neurologic/Psychiatric: Alert, Oriented x3 Skin: Other (labial and groin lesions tender and erythematous) Results Lab Laboratory Tests 11/28/22 07:30: Lactic Acid Level 0.99 11/28/22 10:41: Glucometer 312H 11/28/22 15:06: Glucometer 286H 11/28/22 20:20: Glucometer 280H 11/29/22 05:40: White Blood Count 14.2H, Red Blood Count 5.02, Hemoglobin 13.3, Hematocrit 43, Mean Corpuscular Volume 87, Mean Corpuscular Hemoglobin 27, Mean Corpuscular Hemoglobin Concent 31L, Red Cell Distribution Width 16.9H, Platelet Count 230, Mean Platelet Volume 10.7, Immature Granulocyte % (Auto) 0, Neutrophils (%) (Auto) 75, Lymphocytes (%) (Auto) 18, Monocytes (%) (Auto) 5, Eosinophils (%) (Auto) 1, Basophils (%) (Auto) 0, Neutrophils # (Auto) 10.7H, Lymphocytes # (Auto) 2.5, Monocytes # (Auto) 0.8, Eosinophils # (Auto) 0.2, Basophils # (Auto) 0.1, Immature Granulocyte # (Auto) 0.1, Sodium Level 138, Potassium Level 4.9, Chloride Level 109H, Carbon Dioxide Level 25, Anion Gap 4L, Blood Urea Nitrogen 9, Creatinine 0.83, Estimat Glomerular Filtration Rate 83, BUN/Creatinine Ratio 11, Glucose Level 196H, Calcium Level 8.7, Corrected Calcium 9.3, Total Bilirubin 0.2, Aspartate Amino Transf (AST/SGOT) 12, Alanine Aminotransferase (ALT/SGPT) 20, Alkaline Phosphatase 86, Total Protein 6.1L, Albumin 3.3 Microbiology 11/28/22 Urine Culture - Preliminary, Resulted Probable E.coli Assessment/Plan Assessment/Plan Assessment/Plan Labial abscess - incision and drainage Right upper arm abscess - conservative management, warm compress, keep clean Right foot abscess - conservative management, warm compress, keep clean Diabetes, glucose currently 196 (from 312, 286, 280 yesterday readings) UTI Sepsis Smoking Incise and drain the labial abscesses and transfer to medical management for oth er chronic conditions. Continue with IV ABX and IV pain medication HEATH WEI DO 11/29/22 1339: Subjective Time Seen by a Provider: 13:04 Subjective/Events-last exam Pt seen and examined, states she still has pain in left labial area and thinks it is more swollen. Review of Systems General: No Chills HEENT: Head Aches (since 6 last night) Pulmonary: No Dyspnea; Cough Cardiovascular: No: Chest Pain, Palpitations Gastrointestinal: No: Nausea, Vomiting, Abdominal Pain Objective Exam General Appearance: No Apparent Distress, Obese Respiratory: Normal Breath Sounds, No Accessory Muscle Use, No Respiratory Distress Cardiovascular: Regular Rate, Rhythm (HR 80), No Murmur Gastrointestinal: soft, tenderness (LLQ only to deep palpation) Extremity: Other (right foot has lesion of possible abscess or wart) Neurologic/Psychiatric: Alert, Oriented x3 Skin: Other (labial and groin lesions tender and erythematous, not worse than yesterday) Assessment/Plan Assessment/Plan Assessment/Plan Labial abscess - conservative management Right upper arm abscess - conservative management, warm compress, keep clean Right foot abscess - conservative management, warm compress, keep clean Diabetes, glucose currently 196 (from 312, 286, 280 yesterday readings) UTI Sepsis Smoking I reviewed the CT and there is drainable abscess. I will hold off on incise and drain the labial abscesses. Continue with IV ABX and IV pain medication Supervisory-Addendum Brief Verification & Attestation Participated in pt care: history, MDM, physical Personally performed: exam, history, MDM, supervision of care Care discussed with: Medical Student Procedures: n/a Verification and Attestation of Medical Student E/M Service A medical student performed and documented this service. I then reviewed and verified all information documented by the medical student and made modifications to such information, when appropriate. I personally performed a physical exam, medical decision making and then discussed any differences between the notes and made revisions as necessary to create one note. Heath Wei , 11/29/22 , 13:39 GER[place] KAMARA Nov 29, 2022 07:09 HEATH WEI DO Nov 29, 2022 13:39
[2022-11-29] MEDS: RT-Ipratropium/Albuterol NEB 3 ML VIAL INH SCH ×2 (07:33→21:53)
[2022-11-29] MEDS: inSUlin DETERMIR 1 UNIT/0.01 ML (CHARGE PER UNIT) SQ SCH ×2 (08:31→22:14)
[2022-11-29] MEDS: PATCH REMOVAL TP SCH (08:31)
[2022-11-29] MEDS: NICOTINE 14 MG PATCH TD SCH (08:31)
[2022-11-29] MEDS: PREGABALIN 100 MG CAPSULE PO SCH ×4 (08:32→22:13)
[2022-11-29 08:33] VITALS: BP 122/62
[2022-11-29] MEDS ORDERED: TROUGH ORDER-PHARMACY XX NR (10:00)
[2022-11-29] MEDS ORDERED: fentaNYL INJECTION 100 MCG/2 ML VIAL IVP PRN ×2 (10:30→12:30)
[2022-11-29 11:35] VITALS: BP 113/55
[2022-11-29] MEDS: VANCOMYCIN 1500MG/300ML PREMIX IV SCH ×2 (13:26→23:33)
--- NOTE | 2022-11-29 13:32 | Progress Note - Hospitalist ---
Subjective HPI/CC On Admission Date Seen by Provider: Nov 29, 2022 Nuvia Coffman is a 57 year old female with PMH HTN, T2DM on insulin, HLD, GERD, anxiety, depression, super obesity, who presented with groin pain. She reports having abscesses in her groin for the past 4 months. She has developed new lesions in her groin and on her arm. She reports drainage from one of them. She denies fevers and chills. She has had abdominal pain. She denies diarrhea. She has had nausea and vomiting. She denies chest pain and shortness of breath. Subjective/Events-last exam Pt reports having increasing pain. Hoping for surgery later today. Focused Exam Lactate Level 11/28/22 01:10: Lactic Acid Level 2.54*H 11/28/22 04:42: Lactic Acid Level 2.53*H 11/28/22 07:30: Lactic Acid Level 0.99 Objective Exam Vital Signs Vital Signs Date Time Temp Pulse Resp B/P (MAP) Pulse Ox O2 Delivery O2 Flow Rate FiO2 11/29/22 12:30 77 11/29/22 11:35 36.6 22 113/55 (74) 93 Nasal Cannula 4.00 Capillary Refill : Less Than 3 Seconds General Appearance: No Apparent Distress, Chronically ill, Obese Respiratory: Lungs Clear, No Respiratory Distress Cardiovascular: Regular Rate, Rhythm, No Murmur Gastrointestinal: Normal Bowel Sounds, Soft Neurologic/Psychiatric: Alert, Oriented x3 Results/Procedures Lab Laboratory Tests 11/29/22 05:40 Patient resulted labs reviewed. Imaging: Reviewed Imaging Report Assessment/Plan Assessment and Plan Assess & Plan/Chief Complaint Sepsis Cellulitis Abscess UTI Vancomycin and Merrem Surgery consulted, planning for I&D per report- Spoke with Dr Wei and he plans to reassess first T2DM Severe insulin resistance Decreased dose insulin regimen Levemir 50 units BID Novolog 20 units with meals Sliding scale C Neuropathy Chronic pain Continue home meds HTN HLD Anxiety Depression Continue home meds once med rec completed DVT prophylaxis: Lovenox held for procedure, BETOs SHERON RASHEED MD Nov 29, 2022 13:32
[2022-11-29] MEDS ORDERED: PRAM0.5T2 PO (14:36)
[2022-11-29] MEDS ORDERED: PREG100C PO ×3 (14:38→15:42)
[2022-11-29] MEDS ORDERED: FLUC200T9 (14:46)
[2022-11-29 16:34] VITALS: BP 109/65
--- NOTE | 2022-11-29 16:38 | Wound Care Assessment ---
Wound Care Assessment Date Seen by Provider: Nov 29, 2022 Time Seen by Provider: 16:33 Chief Complaint Hiadrenitis Suppurativa with Labial cellulitis HPI This pleasant 57 year old female is from [place] and presented to our hospital with new infection. She is massively obese (BMI 54), a smoker (8-9 cig/day with recent h/o 1ppd), and diabetic with poor glycemic control. She notes that she was recently maintained on samples from her PCP but they ran out and her blood sugars have been quite elevated as a result (500's in ER per patient). She has had numerous surgeries (breast and axillary) in past. CT on admit with no discrete abscess and only evidence of cellulitic changes to left labia. She has significant induration and erythema with weeping to this entire area but no obvious fluctuance. She is currently on Vancomycin and Meropenem with improvement in WBC overnight. She has no obvious open wound so antibiotics, w eight loss, smoking cessation, and glycemic control are advised. Managed moisture in inguinal region with miconazole powder and interdry. Past Medical History: Admits Diabetes Type II Massive obesity, tobaccoism, hiadrenitis suppuritiva, COPD Smoking Status: Current Everyday Smoker (8-9 cigarettes/day) Alcohol Use: Denies Use Review of Systems Genitourinary: Incontinence Exam Vital Signs Date Time Temp Pulse Resp B/P (MAP) Pulse Ox O2 Delivery O2 Flow Rate FiO2 11/29/22 12:30 77 11/29/22 11:35 36.6 22 113/55 (74) 93 Nasal Cannula 4.00 Capillary Refill : Less Than 3 Seconds General Appearance: no apparent distress, obese (BMI >50) HEENT: other (normal hearing) Neck: full range of motion Respiratory: no respiratory distress, no accessory muscle use Extremities: no pedal edema Neurologic/Psychiatric: alert, normal mood/affect, oriented x 3 Skin Character: drainage, swelling, thickening Results Laboratory Tests 11/28/22 20:20: Glucometer 280H 11/29/22 05:40: White Blood Count 14.2H, Red Blood Count 5.02, Hemoglobin 13.3, Hematocrit 43, Mean Corpuscular Volume 87, Mean Corpuscular Hemoglobin 27, Mean Corpuscular Hemoglobin Concent 31L, Red Cell Distribution Width 16.9H, Platelet Count 230, Mean Platelet Volume 10.7, Immature Granulocyte % (Auto) 0, Neutrophils (%) (Auto) 75, Lymphocytes (%) (Auto) 18, Monocytes (%) (Auto) 5, Eosinophils (%) (Auto) 1, Basophils (%) (Auto) 0, Neutrophils # (Auto) 10.7H, Lymphocytes # (Auto) 2.5, Monocytes # (Auto) 0.8, Eosinophils # (Auto) 0.2, Basophils # (Auto) 0.1, Immature Granulocyte # (Auto) 0.1, Sodium Level 138, Potassium Level 4.9, Chloride Level 109H, Carbon Dioxide Level 25, Anion Gap 4L, Blood Urea Nitrogen 9, Creatinine 0.83, Estimat Glomerular Filtration Rate 83, BUN/Creatinine Ratio 11, Glucose Level 196H, Calcium Level 8.7, Corrected Calcium 9.3, Total Bilirubin 0.2, Aspartate Amino Transf (AST/SGOT) 12, Alanine Aminotransferase (ALT/SGPT) 20, Alkaline Phosphatase 86, Total Protein 6.1L, Albumin 3.3 11/29/22 09:34: Glucometer 91 11/29/22 12:10: Vancomycin Level Trough 14.9 11/29/22 14:39: Glucometer 93 Microbiology 11/28/22 Blood Culture - Preliminary, Resulted 11/28/22 Urine Culture - Final, Complete Escherichia coli Microbiology 11/28/22 Blood Culture - Preliminary, Resulted 11/28/22 Blood Culture - Preliminary, Resulted 11/28/22 Urine Culture - Final, Complete Escherichia coli Assessment/Plan/Dx Assessment: 1. Hiadrenitis Suppurativa 2. Cellulitis L. labia 3. DM2 with poor control 4. Tobaccoism 5. Massive obesity 6. COPD Plan: 1. Cleanse daily. Miconazole powder and interdry for moisture management in groin. Weight loss, smoking cessation and diabetic control discussed at length 2. Agree with broad spectrum antibiotics 3. Agree with improvement in glycemic control 4. Smoking cessation advised 5. Weight loss advised 6. Defer to primary team 7. Will sign off. Thank you for this consult. CURT EDUARDO MD Nov 29, 2022 16:38
[2022-11-29] MEDS: oxyCODONE IMMEDIATE RELEASE 5 MG TABLET PO PRN ×2 (16:41→22:22)
[2022-11-29] MEDS: fentaNYL INJECTION 100 MCG/2 ML VIAL IVP PRN ×2 (18:34→23:33)
[2022-11-29 19:19] VITALS: BP 146/76
[2022-11-29] MEDS: PRAMIPEXOLE 0.5 MG TABLET PO SCH (22:13)
[2022-11-29] MEDS: MICONAZOLE 2% POWDER 90 GM TOP SCH (22:14)
[2022-11-30] VITALS (7 sets, daily range): BP systolic 114–146; BP diastolic 57–83
[2022-11-30] MEDS: KETOROLAC INJ 30 MG/ML VIAL IV PRN ×2 (00:43→10:51)
[2022-11-30] MEDS: ACETAMINOPHEN 500 MG TABLET PO PRN (00:43)
[2022-11-30] MEDS: ONDANSETRON INJECTION 4 MG/2 ML (SDV) IV PRN (00:49)
[2022-11-30] MEDS: PIPERACILLIN/Tazobactam 4.5 GM in NS (IVPB) 100 ML 100 ML IV SCH ×3 (01:21→16:30)
[2022-11-30] MEDS: NS IV 1000 ML 1,000 ML IV SCH ×4 (01:22→21:06)
[2022-11-30] MEDS: oxyCODONE IMMEDIATE RELEASE 5 MG TABLET PO PRN ×3 (02:30→18:52)
[2022-11-30] MEDS: inSUlin ASPART 1 UNIT/0.01 ML (PER UNIT) SC SCH ×8 (07:00→21:06)
[2022-11-30] MEDS: RT-Ipratropium/Albuterol NEB 3 ML VIAL INH SCH ×2 (07:51→21:14)
--- NOTE | 2022-11-30 08:11 | Progress Note - Surgery ---
GERMANIA KAMARA 11/30/22 0811: Subjective Date Seen by a Provider: Nov 30, 2022 Time Seen by a Provider: 08:06 Subjective/Events-last exam Pt says she has not felt very well the last day. Pt says her left groin area where the lesions are have been throbbing and that she hardly slept. Pt has been receiving IV and oral pain medication in the last 24 hours. Pt states her right upper arm lesion is "getting ready to fill up again" and is still sore, and that her right foot lesion is also still sore. Both appear the same as yesterday from my inspection, without anything visible to drain. Pt still says she has not had a BM in a week and a half, denies blood in them or dark stools but that they are runny sometimes. Pt has been having dysuria, believes she last urinated around 3:00 a.m. Her WBC counts have been 14.2 (11/29) and 15.9 (11/28), with no reading yet for today. Review of Systems General: Chills (pt states a little bit last night); No Night Sweats HEENT: No Head Aches, No Visual Changes Pulmonary: No Dyspnea; Cough Cardiovascular: No: Chest Pain, Palpitations Gastrointestinal: Nausea (pt says she had some nausea but was given medicine for it), Abdominal Pain (pt states LLQ pain); No: Vomiting Genitourinary: Dysuria (pt says hurts to pee so she holds it, says last urinated at 3 this morning); No Hematuria Neurological: Numbness (peripheral neuropathy in feet); No: Weakness Focused Exam Lactate Level 11/28/22 01:10: Lactic Acid Level 2.54*H 11/28/22 04:42: Lactic Acid Level 2.53*H 11/28/22 07:30: Lactic Acid Level 0.99 Objective Exam Vital Signs Date Time Temp Pulse Resp B/P (MAP) Pulse Ox O2 Delivery O2 Flow Rate FiO2 11/30/22 07:52 93 Nasal Cannula 6.00 11/30/22 03:21 36.0 83 18 122/62 (82) 93 Nasal Cannula 6.00 6.00 11/30/22 01:00 83 11/30/22 00:12 36.2 86 18 128/61 (83) 93 Nasal Cannula 6.00 6.00 11/29/22 21:53 93 Nasal Cannula 6.00 11/29/22 20:50 Nasal Cannula 4.00 11/29/22 19:19 36.8 77 18 146/76 (99) 94 Nasal Cannula 4.00 11/29/22 19:00 78 11/29/22 16:34 36.0 80 20 109/65 (80) 98 Nasal Cannula 4.00 11/29/22 12:30 77 11/29/22 11:35 36.6 74 22 113/55 (74) 93 Nasal Cannula 4.00 11/29/22 08:33 36.1 73 22 122/62 (82) 94 Nasal Cannula 4.00 11/29/22 08:30 Nasal Cannula 4.00 I & O 11/30/22 06:59 Intake Total 3950 ml Balance 3950 ml Capillary Refill : Less Than 3 Seconds General Appearance: No Apparent Distress, Obese Neck: Non Tender; No JVD Respiratory: Lungs Clear, No Respiratory Distress Cardiovascular: Regular Rate, Rhythm (HR 90), No Murmur Peripheral Pulses: 2+ Carotid (R), 2+ Carotid (L), 2+ Dorsalis Pedis (R), 2+ Left Dors-Pedis (L), 2+ Radial Pulses (R), 2+ Radial Pulses (L) Gastrointestinal: soft, tenderness (LLQ only to deep palpation that radiates to her ipsilateral groin) Extremity: Other (right foot has lesion of possible abscess or wart, upper right arm has healing lesion of possible older abscess) Neurologic/Psychiatric: Alert, Oriented x3 Skin: Erythema (right upper arm and labial lesions), Other (right upper arm healing lesion erythematous, right foot healing lesion, left labial lesions) Results Lab Laboratory Tests 11/29/22 09:34: Glucometer 91 11/29/22 12:10: Vancomycin Level Trough 14.9 11/29/22 14:39: Glucometer 93 11/29/22 21:51: Glucometer 225H 11/30/22 05:11: Glucometer 227H Microbiology 11/28/22 Blood Culture - Preliminary, Resulted 11/28/22 Urine Culture - Final, Complete Escherichia coli Assessment/Plan Assessment/Plan Assessment/Plan Labial abscess - conservative management Right upper arm abscess - conservative management, warm compress, keep clean Right foot abscess - conservative management, warm compress, keep clean Diabetes, glucose currently 227 (from 312, 286, 280, 225 previous readings) UTI Sepsis Smoking I reviewed the CT and there is no drainable abscess. I will hold off on incising and draining the labial abscesses. Continue with IV ABX and IV pain medication VALDEMARTOSHIA Berry DO 11/30/22 1345: Subjective Time Seen by a Provider: 11:35 Subjective/Events-last exam Pt seen and examined, states now the lesion under right arm is hurting more and the pelvic lesion "is spreading down". Still with moderate pain. Review of Systems General: Chills (pt states a little bit last night); No Night Sweats Pulmonary: No Dyspnea; Cough Cardiovascular: No: Chest Pain, Palpitations Gastrointestinal: Nausea (pt says she had some nausea but was given medicine for it), Abdominal Pain (pt states LLQ pain); No: Vomiting Genitourinary: Dysuria (pt says hurts to pee so she holds it, says last urinated at 3 this morning) Objective Exam General Appearance: No Apparent Distress, Obese (super morbidly) HEENT: PERRL/EOMI Respiratory: Lungs Clear, Normal Breath Sounds, No Accessory Muscle Use, No Respiratory Distress Cardiovascular: Regular Rate, Rhythm, No Murmur Gastrointestinal: soft, tenderness (LLQ only to deep palpation that radiates to her ipsilateral groin) Extremity: Other (right foot has lesion of possible abscess or wart, upper right arm has healing lesion of possible older abscess) Neurologic/Psychiatric: Alert, Oriented x3 Skin: Erythema (right upper arm and labial lesions), Other (left labial lesions examined with nurse in the room. looks more like cellulitis or hidradenitis, no obvious fluctuance, area looks erythematous with purplish discoloration - appears almost chronic) Assessment/Plan Assessment/Plan Assessment/Plan Labial abscess - conservative management Right upper arm abscess - conservative management, warm compress, keep clean Right foot abscess - conservative management, warm compress, keep clean Diabetes, glucose currently 227 (from 312, 286, 280, 225 previous readings) UTI Sepsis Smoking I reviewed the CT and there is no drainable abscess. I will hold off on incising and draining the labial abscesses. Continue with IV ABX and IV pain medication or oral Will order US to be safe and will add Mupirocin to be place in labial area. Supervisory-Addendum Brief Verification & Attestation Participated in pt care: history, MDM, physical Personally performed: exam, history, MDM, supervision of care Care discussed with: Medical Student Procedures: n/a Verification and Attestation of Medical Student E/M Service A medical student performed and documented this service. I then reviewed and verified all information documented by the medical student and made modifications to such information, when appropriate. I personally performed a p hysical exam, medical decision making and then discussed any differences between the notes and made revisions as necessary to create one note. Toshia Wei , 11/30/22 , 13:44 GERMANIA KAMARA Nov 30, 2022 08:11 TOSHIA WEI DO Nov 30, 2022 13:45
[2022-11-30] MEDS: NICOTINE 14 MG PATCH TD SCH (08:55)
[2022-11-30] MEDS: inSUlin DETERMIR 1 UNIT/0.01 ML (CHARGE PER UNIT) SQ SCH ×2 (08:55→21:06)
[2022-11-30] MEDS: PREGABALIN 100 MG CAPSULE PO SCH ×4 (08:56→20:28)
[2022-11-30] MEDS: PATCH REMOVAL TP SCH (09:03)
[2022-11-30] MEDS: MICONAZOLE 2% POWDER 90 GM TOP SCH ×2 (09:04→20:29)
[2022-11-30] MEDS: PANTOPRAZOLE 40 MG TABLET PO SCH (10:51)
[2022-11-30] MEDS: FLUoxetine 10 MG CAPSULE/TABLET PO SCH (10:51)
[2022-11-30] MEDS: SENNOSIDES 8.6 MG TABLET PO SCH (10:51)
[2022-11-30] MEDS: LORATADINE 10 MG TABLET PO SCH (10:51)
[2022-11-30] MEDS: VANCOMYCIN 1500MG/300ML PREMIX IV SCH ×2 (10:51→13:57)
--- NOTE | 2022-11-30 11:39 | Progress Note - Hospitalist ---
Subjective HPI/CC On Admission Date Seen by Provider: Nov 30, 2022 Nuvia Coffman is a 57 year old female with PMH HTN, T2DM on insulin, HLD, GERD, anxiety, depression, super obesity, who presented with groin pain. She reports having abscesses in her groin for the past 4 months. She has developed new lesions in her groin and on her arm. She reports drainage from one of them. She denies fevers and chills. She has had abdominal pain. She denies diarrhea. She has had nausea and vomiting. She denies chest pain and shortness of breath. Subjective/Events-last exam Pt reports having persistent pain. Tells me that the pain medication is not helping at all. Had reported to the nurse yesterday that her pain was much better with the medication. When asked about this she stated it just helped one time and she's been in pain all morning. When I had asked the RN about her pain before entering RN reports she has been sleeping soundly and when she woke her up to give her her Lyrica she did not complain of any pain. Discussed plan to find a balance with pain medication and try to transition to oral meds in preparation for DC. Focused Exam Lactate Level 11/28/22 01:10: Lactic Acid Level 2.54*H 11/28/22 04:42: Lactic Acid Level 2.53*H 11/28/22 07:30: Lactic Acid Level 0.99 Objective Exam Vital Signs Vital Signs Date Time Temp Pulse Resp B/P (MAP) Pulse Ox O2 Delivery O2 Flow Rate FiO2 11/30/22 08:29 36.3 85 16 146/83 (104) 93 Nasal Cannula 4.00 Capillary Refill : Less Than 3 Seconds General Appearance: No Apparent Distress, Obese Respiratory: Lungs Clear, No Respiratory Distress Cardiovascular: Regular Rate, Rhythm, No Murmur Neurologic/Psychiatric: Alert, Oriented x3 Results/Procedures Lab Patient resulted labs reviewed. Imaging: Reviewed Imaging Report Assessment/Plan Assessment and Plan Assess & Plan/Chief Complaint Sepsis Cellulitis Abscess UTI Vancomycin and Merrem Surgery consulted, no need for I&D as is draining per Dr Wei usg ordered Continue pain regimen T2DM Severe insulin resistance Decreased dose insulin regimen Levemir 50 units BID Novolog 20 units with meals Sliding scale C Neuropathy Chronic pain Continue home meds HTN HLD Anxiety Depression Continue home meds DVT prophylaxis: Lovenox KATHYA,SHERON M MD Nov 30, 2022 11:39
[2022-11-30] MEDS: ENOXAPARIN 60 MG/0.6 ML SYRINGE SC SCH (12:40)
--- NOTE | 2022-11-30 13:55 | Physical Therapy Evaluation ---
PT Evaluation-General Medical Diagnosis Admission Date Nov 28, 2022 at 08:03 Medical Diagnosis: sepsis/DM/cellulitis Onset Date: Nov 28, 2022 Therapy Diagnosis Therapy Diagnosis: debility Precautions Precautions/Isolations: Standard Precautions Referral Physician: Chip Reason for Referral: Evaluation/Treatment Medical History Pertinent Medical History: DM, Smoking Additional Medical History super obese Current History ER secondary to abdominal wound/UTI Reviewed History: Yes Social History Home: Single Level Current Living Status: Alone Entry Into Home: Stairs With Railing PT Steps Into Home: 3 Prior Prior Level of Function SCALE: Activities may be completed with or without assistive devices. 3-Jzpcflnfls-dlpmlev completes the activity by him/herself with no assistance from a helper. 5-Set-up or Clean-up Assistance-helper sets up or cleans up; patient completes activity. [place] assists only prior to or following the activity. 4-Supervision or Touching Assistance-helper provides verbal cues and/or touching/steadying and/or contact guard assistance as patient completes activity. Assistance may be provided throughout the activity or intermittently. 3-Partial/Moderate Assistance-helper does LESS THAN HALF the effort. [place] lifts, holds or supports trunk or limbs, but provides less than half the effort. 2-Substantial/Maximal Assistance-helper does MORE THAN HALF the effort. [place] lifts or holds trunk or limbs and provides more than half the effort. 5-Paxtzgsux-onqwuz does ALL the effort. Patient does none of the effort to complete the activity. Or, the assistance of 2 or more helpers is required for the patient to complete the activity. If activity was not attempted, code reason: 7-Patient Refused. 9-Not Applicable-not attempted and the patient did not perform the activity before the current illness, exacerbation or injury. 10-Not Attempted due to Environmental Limitations-(lack of equipment, weather restraints, etc.). 88-Not Attempted due to Medical Conditions or Safety Concerns. Bed Mobility: 6 Transfers (B,C,W/C): 6 Gait: 6 Stairs: 6 Indoor Mobility (Ambulation): Independent Stairs: Independent Prior Devices Use: Walker (4WW) patient reports she uses the chavez in her home when ambulating due to inability to utilize 4WW due to size of home. PT Evaluation-Current Subjective Upon entering patient's room, O2 not on patient. Patient reports she didn't want it on because her nose was bleeding. No noted blood at this time. SAO2 RA 79%. O2 back in place. RN notified. Objective Patient Orientation: Normal For Age Attachments: Oxygen ROM/Strength ROM Lower Extremities bilateral LE WFL Strength Lower Extremities 4/5 grossly bilateral LE all planes Integumentary/Posture Bowel Incontinence: No Bladder Incontinence: No Posture WFL Neuromuscular (Tone, Coordination, Reflexes) grossly intact Sensory Vision: Wears Glasses Hearing: Functional Transfers Sit to Stand (QC): 6 Chair/Nyg-ze-Vdmic Xfer(QC): 6 Toilet Transfer (QC): 6 Gait Mode of Locomotion: Walk Anticipated Mode of Locomotion: Walk Walk 10 feet (QC): 6 Walk 50 ft with 2 Turns(QC): 7 Walk 150 ft (QC): 7 Distance: 40' Gait Assistive Device: None Comments/Gait Description WBOS/declined 4WW use Balance Sitting Static: Normal Sitting Dynamic: Normal Standing Static: Fair Standing Dynamic: Fair Assessment/Needs Patient is currently at [facility] with all gross motor skills and does not require skilled PT intervention at this time. Rehab Potential: Fair PT Plan Treatment/Plan Treatment Plan: Discontinue PT Treatment Duration: Nov 30, 2022 Frequency: 1 time per week Estimated Hrs Per Day: .25 hour per day Patient and/or Family Agrees t: Yes Time Time In: 1310 Time Out: 1324 DATE: Nov 30, 2022 Total Billed Treatment Time: 14 Total Billed Treatment 1 visit EVMod 14 min WARREN PATTERSON PT Nov 30, 2022 13:55
[2022-11-30] MEDS: fentaNYL INJECTION 100 MCG/2 ML VIAL IVP PRN ×2 (14:33→20:29)
[2022-11-30] MEDS: MUPIROCIN 2% OINTMENT 22 GM TUBE TOP SCH ×2 (15:53→20:29)
[2022-11-30] MEDS: PRAMIPEXOLE 0.5 MG TABLET PO SCH (20:28)
--- NOTE | 2022-11-30 20:59 | Diagnostic Imaging Report ---
INDICATION: Hidradenitis cellulitis versus abscess, infection. TECHNIQUE: Multiple real time joy scale sonographic images were obtained of the soft tissues left pelvis. CORRELATION STUDY: CT 11/28/2022 FINDINGS: Imaging performed of soft tissues in the labial region. Just below the skin surface there is a hypoechoic area with some vascularity suggesting inflammation of the soft tissues. This measures approximately 2.2 x 0.6 cm. More peripherally in the inguinal areas, is a mixed area largely cystic with debris measuring 1.9 x 1.3 x 1.6 cm with peripheral vascularity. IMPRESSION: 1.Findings suggest asymmetric edema and erythema at the left labia. Definitive drainable abscess not demonstrated at this time but may be developing. 2. More complex fluid collection in the left inguinal region with peripheral vascularity suspect for small abscess just under 2 cm in size. Dictated by: Dictated on workstation # [id number]
[2022-11-30] MEDS ORDERED: NON-FORMULARY MEDICATION 1 EA EA PO SCH (21:00)
[2022-11-30] MEDS ORDERED: PATIENT MAY USE OWN MED,SINGLE MED PO SCH (21:00)
[2022-12-01] VITALS (7 sets, daily range): BP systolic 125–154; BP diastolic 63–87
[2022-12-01] MEDS: ENOXAPARIN 60 MG/0.6 ML SYRINGE SC SCH ×2 (01:03→11:57)
[2022-12-01] MEDS: PIPERACILLIN/Tazobactam 4.5 GM in NS (IVPB) 100 ML 100 ML IV SCH ×3 (01:03→15:53)
[2022-12-01] MEDS: VANCOMYCIN 1500MG/300ML PREMIX IV SCH ×2 (01:03→13:19)
[2022-12-01] MEDS: oxyCODONE IMMEDIATE RELEASE 5 MG TABLET PO PRN ×4 (01:04→20:06)
[2022-12-01] MEDS: NS IV 1000 ML 1,000 ML IV SCH (05:41)
[2022-12-01] MEDS: inSUlin ASPART 1 UNIT/0.01 ML (PER UNIT) SC SCH ×7 (05:41→20:06)
--- NOTE | 2022-12-01 07:15 | Progress Note - Surgery ---
GERMANIA KAMARA 12/01/22 0715: Subjective Date Seen by a Provider: Dec 01, 2022 Time Seen by a Provider: 07:10 Subjective/Events-last exam Pt was awaken from sleep and had trouble staying awake during this encounter. Pt states she is feeling better, including her groin area. She was started on Mup irocen in her groin area yesterday and had an inguinal US last night, indicating likely no abscess in the left labial area but a possible small abscess more peripherally in the left inguinal area. Her upper arm lesion and right foot lesion have not changed in appearance in the past 24 hours. The nurse reports no real changes since yesterday otherwise. Review of Systems General: No Chills, No Night Sweats HEENT: No Head Aches, No Visual Changes Pulmonary: No Dyspnea; Cough Cardiovascular: No: Chest Pain, Palpitations Gastrointestinal: No: Nausea, Vomiting, Abdominal Pain Genitourinary: No Dysuria, No Hematuria Neurological: No: Weakness, Numbness Focused Exam Lactate Level 11/28/22 07:30: Lactic Acid Level 0.99 Objective Exam Vital Signs Date Time Temp Pulse Resp B/P (MAP) Pulse Ox O2 Delivery O2 Flow Rate FiO2 12/01/22 03:42 36.7 89 20 125/87 (100) 98 Nasal Cannula 4.00 4.00 11/30/22 23:03 36.4 90 20 114/57 (76) 98 Nasal Cannula 5.00 5.00 11/30/22 21:15 90 Nasal Cannula 5.00 11/30/22 20:30 Nasal Cannula 4.00 11/30/22 19:32 36.2 79 20 146/77 (100) 95 Nasal Cannula 4.00 4.00 11/30/22 16:33 36.7 71 20 130/69 (89) 94 Nasal Cannula 4.00 11/30/22 15:00 Nasal Cannula 4.00 11/30/22 12:25 71 11/30/22 11:58 36.5 73 16 124/71 (88) 93 Nasal Cannula 4.00 11/30/22 08:29 36.3 85 16 146/83 (104) 93 Nasal Cannula 4.00 11/30/22 08:00 Nasal Cannula 4.00 11/30/22 07:52 93 Nasal Cannula 6.00 I & O 12/01/22 07:00 Intake Total 2500 ml Output Total 2700 ml Balance -200 ml Capillary Refill : Less Than 3 Seconds General Appearance: No Apparent Distress, Obese (super morbidly) Neck: Non Tender; No JVD Respiratory: Lungs Clear, Normal Breath Sounds, No Accessory Muscle Use, No Respiratory Distress Cardiovascular: Regular Rate, Rhythm, No Murmur Peripheral Pulses: 2+ Carotid (R), 2+ Carotid (L), 2+ Dorsalis Pedis (R), 2+ Left Dors-Pedis (L), 2+ Radial Pulses (R), 2+ Radial Pulses (L) Gastrointestinal: non tender, soft Extremity: Other (right foot has lesion of possible abscess or wart, upper right arm has healing lesion of possible older abscess) Neurologic/Psychiatric: Alert, Oriented x3 Skin: Erythema (right upper arm and labial lesions), Other (left labial lesions examined with nurse in the room. looks more like cellulitis or hidradenitis, no obvious fluctuance, area looks erythematous with purplish discoloration - appears almost chronic) Results Lab Laboratory Tests 12/01/22 05:16: Glucometer 332H Microbiology 11/28/22 Blood Culture - Preliminary, Resulted 11/28/22 Urine Culture - Final, Complete Escherichia coli Assessment/Plan Assessment/Plan Assessment/Plan Left inguinal abscess - conservative management, mupirocen Left labial lesions - conservative management, mupirocen Right upper arm lesion - conservative management, warm compress, keep clean Right foot lesion - conservative management, warm compress, keep clean Diabetes, glucose currently 332 (from 312, 286, 280, 225, 227 previous readings) UTI Sepsis Smoking US shows a possible small <2cm abscess in the left inguinal region and no abscess in the labial region. Will continue monitoring it and treating both areas with Mupirocen and drain if it enlarges. HEATH WEI DO 12/01/22 1449: Subjective Time Seen by a Provider: 13:10 Subjective/Events-last exam Pt seen and examined, states she feels bad; "pain all over". Review of Systems General: No Chills, No Night Sweats Pulmonary: No Dyspnea; Cough Cardiovascular: No: Chest Pain, Palpitations Gastrointestinal: Abdominal Pain; No: Nausea, Vomiting Objective Exam General Appearance: No Apparent Distress, Obese (super morbidly) Respiratory: Lungs Clear, Normal Breath Sounds, No Accessory Muscle Use, No Respiratory Distress Cardiovascular: Regular Rate, Rhythm, No Murmur Gastrointestinal: non tender, soft Extremity: Other (right foot has lesion of possible abscess or wart, upper right arm has healing lesion of possible older abscess) Skin: Other (left labial lesions examined with nurse in the room. no obvious fluctuance, area looks much better, no erythema and area is dry) Assessment/Plan Assessment/Plan Assessment/Plan Left inguinal abscess - conservative management, mupirocen Left labial lesions - conservative management, mupirocen Right upper arm lesion - conservative management, warm compress, keep clean Right foot lesion - conservative management, warm compress, keep clean Diabetes, glucose currently 332 (from 312, 286, 280, 225, 227 previous readings) UTI Sepsis Smoking All areas look much better. US shows a possible small <2cm abscess in the left inguinal region and no abscess in the labial region. Will continue monitoring it and treating both areas with Mupirocen and drain if it enlarges. Supervisory-Addendum Brief Verification & Attestation Participated in pt care: history, MDM, physical Personally performed: exam, history, MDM, supervision of care Care discussed with: Medical Student Procedures: n/a Verification and Attestation of Medical Student E/M Service A medical student performed and documented this service. I then reviewed and verified all information documented by the medical student and made modifications to such information, when appropriate. I personally performed a physical exam, medical decision making and then discussed any differences between the notes and made revisions as necessary to create one note. Heath Wei , 12/01/22 , 14:48 GERMANIA KAMARA Dec 01, 2022 07:15 HEATH WEI DO Dec 01, 2022 14:49
[2022-12-01] MEDS: RT-Ipratropium/Albuterol NEB 3 ML VIAL INH SCH ×2 (08:17→20:46)
[2022-12-01] MEDS: inSUlin DETERMIR 1 UNIT/0.01 ML (CHARGE PER UNIT) SQ SCH ×2 (08:20→20:06)
[2022-12-01] MEDS: NICOTINE 14 MG PATCH TD SCH (08:20)
[2022-12-01] MEDS: FLUoxetine 10 MG CAPSULE/TABLET PO SCH (08:21)
[2022-12-01] MEDS: SENNOSIDES 8.6 MG TABLET PO SCH (08:21)
[2022-12-01] MEDS: PANTOPRAZOLE 40 MG TABLET PO SCH (08:21)
[2022-12-01] MEDS: LORATADINE 10 MG TABLET PO SCH (08:21)
[2022-12-01] MEDS: PREGABALIN 100 MG CAPSULE PO SCH ×4 (08:21→20:07)
[2022-12-01] MEDS: MUPIROCIN 2% OINTMENT 22 GM TUBE TOP SCH ×2 (08:22→20:07)
[2022-12-01] MEDS: MICONAZOLE 2% POWDER 90 GM TOP SCH ×2 (08:22→20:07)
[2022-12-01] MEDS: PATCH REMOVAL TP SCH (08:38)
[2022-12-01 08:48] LABS: HEMATOCRIT 41 % (35-52); HEMOGLOBIN 12.2 g/dL (11.5-16.0); MEAN CORPUSCULAR HEMOGLOBIN 26 pg (25-34); MEAN CORPUSCULAR HGB CONC 30 g/dL (32-36); MEAN CORPUSCULAR VOLUME 88 fL (80-99); MEAN PLATELET VOLUME 10.9 fL (9.0-12.2); PLATELET COUNT 235 10^3/uL (130-400); WHITE BLOOD COUNT 11.2 10^3/uL (4.3-11.0)
[2022-12-01 09:03] LABS: CALCIUM 8.6 MG/DL (8.5-10.1); CREATININE SERUM 0.83 MG/DL (0.60-1.30); POTASSIUM 4.9 MMOL/L (3.6-5.0)
--- NOTE | 2022-12-01 12:39 | Progress Note - Hospitalist ---
Subjective HPI/CC On Admission Date Seen by Provider: Dec 01, 2022 Nuvia Coffman is a 57 year old female with PMH HTN, T2DM on insulin, HLD, GERD, anxiety, depression, super obesity, who presented with groin pain. She reports having abscesses in her groin for the past 4 months. She has developed new lesions in her groin and on her arm. She reports drainage from one of them. She denies fevers and chills. She has had abdominal pain. She denies diarrhea. She has had nausea and vomiting. She denies chest pain and shortness of breath. Subjective/Events-last exam Pt reports doing better today. Less pain, Has not needed fentanyl overnight. Objective Exam Vital Signs Vital Signs Date Time Temp Pulse Resp B/P (MAP) Pulse Ox O2 Delivery O2 Flow Rate FiO2 12/01/22 11:13 36.4 92 18 151/74 (99) 94 Nasal Cannula 5.00 Capillary Refill : Less Than 3 Seconds General Appearance: No Apparent Distress, Chronically ill, Obese Respiratory: Lungs Clear, No Respiratory Distress Cardiovascular: Regular Rate, Rhythm, No Murmur Gastrointestinal: Normal Bowel Sounds, Soft Neurologic/Psychiatric: Alert, Oriented x3 Results/Procedures Lab Laboratory Tests 12/01/22 08:30 Patient resulted labs reviewed. Imaging: Reviewed Imaging Report Assessment/Plan Assessment and Plan Assess & Plan/Chief Complaint Sepsis Cellulitis Abscess UTI Vancomycin and Merrem Surgery consulted, no need for I&D as is draining per Dr Wei usg showed no labial abscess put possible inguinal abscess- defer to surgery on anagement Continue pain regimen T2DM Severe insulin resistance Decreased dose insulin regimen Levemir 50 units BID Novolog 20 units with meals Sliding scale C Not eating well today so will defer increasing insulin regimen for now as she says she can drop very quickly- trend Neuropathy Chronic pain Continue home meds HTN HLD Anxiety Depression Continue home meds DVT prophylaxis: SHERON Mir MD Dec 01, 2022 12:39
[2022-12-01] MEDS: fentaNYL INJECTION 100 MCG/2 ML VIAL IVP PRN (15:54)
[2022-12-01] MEDS: PRAMIPEXOLE 0.5 MG TABLET PO SCH (20:06)
[2022-12-02] MEDS: oxyCODONE IMMEDIATE RELEASE 5 MG TABLET PO PRN ×6 (01:05→23:27)
[2022-12-02] MEDS: VANCOMYCIN 1500MG/300ML PREMIX IV SCH ×2 (01:05→12:42)
[2022-12-02] MEDS: ENOXAPARIN 60 MG/0.6 ML SYRINGE SC SCH ×2 (01:05→11:34)
[2022-12-02] MEDS: PIPERACILLIN/Tazobactam 4.5 GM in NS (IVPB) 100 ML 100 ML IV SCH ×2 (01:05→08:46)
[2022-12-02 03:23] VITALS: BP 136/89
[2022-12-02] MEDS: inSUlin ASPART 1 UNIT/0.01 ML (PER UNIT) SC SCH ×7 (06:35→21:05)
[2022-12-02] MEDS: KETOROLAC INJ 30 MG/ML VIAL IV PRN ×2 (07:21→13:21)
[2022-12-02] MEDS: ACETAMINOPHEN 500 MG TABLET PO PRN ×3 (07:22→21:11)
[2022-12-02] MEDS: RT-Ipratropium/Albuterol NEB 3 ML VIAL INH SCH ×2 (07:28→21:39)
--- NOTE | 2022-12-02 08:21 | Progress Note - Surgery ---
GERMANIA KAMARA 12/02/22 0821: Subjective Date Seen by a Provider: Dec 02, 2022 Time Seen by a Provider: 08:15 Subjective/Events-last exam Pt states her labial lesion bothers her at a 7/10, her inguinal lesion bothers her at 8/10, and her right upper arm lesion bothers her at a 5/10, and her foot lesion is non-painful unless it is bumped into. The pt now complains of a new lesion in her right inguinal region. Pt is currently receiving Mupirocen tx to her labial and inguinal region, and the nurse relays they are no longer erythematous. The nurse states she cannot even see the lesions unless she feels for them, but she does see some drainage on the dressing covering them when changing it. Upon inspection of the right upper arm lesion, it now looks a little more erythematous and is bulging a little more than yesterday. Upon inspection of the right foot lesion, it now appears mildly erythematous as if it was bumped, but otherwise the same. The pt has peripheral neuropathy b/l in her feet. The pt says she has still not had a BM in a couple weeks but that is normal for her due to her diabetes, and when she does have BMs, there is no melena or hematochezia. Review of Systems General: No Chills, No Night Sweats HEENT: Head Aches; No Eye Pain Pulmonary: No Dyspnea; Cough Cardiovascular: No: Chest Pain, Palpitations Gastrointestinal: Nausea (a little bit after eating), Abdominal Pain (LLQ and LUQ), Constipation (last BM a couple weeks ago); No: Vomiting, Diarrhea Genitourinary: Dysuria; No Hematuria Neurological: Numbness (peripheral neuropathy b/l feet); No: Weakness, Confusion Objective Exam Vital Signs Date Time Temp Pulse Resp B/P (MAP) Pulse Ox O2 Delivery O2 Flow Rate FiO2 12/02/22 07:30 96 Nasal Cannula 6.00 12/02/22 03:23 36.8 79 20 136/89 (105) 93 NIV CPAP 6.00 6.00 12/01/22 23:06 35.9 85 20 134/69 (90) 93 NIV CPAP 6.00 6.00 12/01/22 20:46 97 Nasal Cannula 6.00 12/01/22 20:05 Nasal Cannula 5.00 12/01/22 19:55 36.4 92 94 12/01/22 19:42 36.4 76 20 128/63 (84) 95 High Flow N/C 6.00 12/01/22 15:35 36.3 83 20 141/63 (89) 96 High Flow N/C 6.00 12/01/22 11:13 36.4 92 18 151/74 (99) 94 Nasal Cannula 5.00 12/01/22 08:24 94 Nasal Cannula 6.00 I & O 12/02/22 07:00 Intake Total 2560 ml Output Total 5300 ml Balance -2740 ml Capillary Refill : Less Than 3 Seconds General Appearance: No Apparent Distress, Obese (super morbidly) Neck: Non Tender; No JVD Respiratory: Lungs Clear, Normal Breath Sounds, No Accessory Muscle Use, No Respiratory Distress, Expiration (cough upon full exhalation) Cardiovascular: Regular Rate, Rhythm (HR 79), No Murmur Peripheral Pulses: 2+ Carotid (R), 2+ Carotid (L), 2+ Dorsalis Pedis (R), 2+ Left Dors-Pedis (L), 2+ Radial Pulses (R), 2+ Radial Pulses (L) Gastrointestinal: soft; No distended, No guarding (no voluntary or involuntary), No rebound; tenderness (left flank area) Extremity: No Pedal Edema, Other (right foot has mildly erythematous lesion of possible abscess or wart, upper right arm has erythematous lesion of possible abscess) Neurologic/Psychiatric: Alert, Oriented x3 Skin: Other (nurse relays left labial and inguinal lesions are only noticed by touch now but some drainage occurs into the dressing) Results Lab Laboratory Tests 12/01/22 08:30: White Blood Count 11.2H, Red Blood Count 4.65, Hemoglobin 12.2, Hematocrit 41, Mean Corpuscular Volume 88, Mean Corpuscular Hemoglobin 26, Mean Corpuscular Hemoglobin Concent 30L, Red Cell Distribution Width 16.5H, Platelet Count 235, Mean Platelet Volume 10.9, Sodium Level 134L, Potassium Level 4.9, Chloride Level 105, Carbon Dioxide Level 25, Anion Gap 4L, Blood Urea Nitrogen 11, Creat inine 0.83, Estimat Glomerular Filtration Rate 83, BUN/Creatinine Ratio 13, Glucose Level 291H, Calcium Level 8.6 12/01/22 10:43: Glucometer 205H 12/01/22 15:32: Glucometer 160H 12/01/22 19:59: Glucometer 154H 12/02/22 05:25: Glucometer 240H Microbiology 11/28/22 Blood Culture - Preliminary, Resulted 11/28/22 Urine Culture - Final, Complete Escherichia coli Assessment/Plan Assessment/Plan Assessment/Plan Left inguinal abscess - conservative management, mupirocen Left labial lesions - conservative management, mupirocen Right upper arm lesion - conservative management, mupirocen Right foot lesion - conservative management, warm compress, keep clean Diabetes, glucose currently 240 (from 312, 286, 280, 225, 227, 332 previous readings) UTI Sepsis Smoking The right upper arm area looks more erythematous than before, will start Mupirocen on it as well. Her WBC count is now 11.2 (from 15.9 11/28 and 14.2 11/29). US showed a possible small <2cm abscess in the left inguinal region and no abscess in the labial region. The labial and inguinal regions no longer are erythematous and look much better. Will continue monitoring it and treating both areas with Mupirocen and drain if it enlarges HEATH WEI DO 12/02/22 1400: Subjective Time Seen by a Provider: 10:53 Subjective/Events-last exam Pt seen and examined, no changes. Review of Systems Pulmonary: No Dyspnea; Cough Cardiovascular: No: Chest Pain, Palpitations Gastrointestinal: Nausea (a little bit after eating), Abdominal Pain (LLQ and LUQ), Constipation (last BM a couple weeks ago); No: Vomiting Genitourinary: Dysuria Neurological: Numbness (peripheral neuropathy b/l feet) Objective Exam General Appearance: No Apparent Distress, Obese (super morbidly) Respiratory: Lungs Clear, Normal Breath Sounds, No Accessory Muscle Use, No Respiratory Distress, Expiration (cough upon full exhalation) Cardiovascular: Regular Rate, Rhythm (HR 79), No Murmur Gastrointestinal: soft; No distended, No guarding (no voluntary or involuntary), No rebound; tenderness (left flank area) Extremity: No Pedal Edema, Other (right foot has mildly erythematous lesion of possible abscess or wart, upper right arm looks the same - no changes) Skin: Other (nurse relays left labial and inguinal lesions are only noticed by touch now but some drainage occurs into the dressing) Assessment/Plan Assessment/Plan Assessment/Plan Left inguinal abscess - conservative management, mupirocen Left labial lesions - conservative management, mupirocen Right upper arm lesion - conservative management, mupirocen Right foot lesion - conservative management, warm compress, keep clean Diabetes, glucose currently 240 (from 312, 286, 280, 225, 227, 332 previous readings) UTI Sepsis Smoking The right upper arm area looks more erythematous than before, will start Mupirocen on it as well. Her WBC count is now 11.2 (from 15.9 11/28 and 14.2 11/29). US showed a possible small <2cm abscess in the left inguinal region and no abscess in the labial region. The labial and inguinal regions no longer are erythematous and look much better. Will continue monitoring it and treating both areas with Mupirocen and drain if it enlarges Supervisory-Addendum Brief Verification & Attestation Participated in pt care: history, MDM, physical Personally performed: exam, history, MDM, supervision of care Care discussed with: Medical Student Procedures: n/a Verification and Attestation of Medical Student E/M Service A medical student performed and documented this service. I then reviewed and verified all information documented by the medical student and made modifications to such information, when appropriate. I personally performed a physical exam, medical decision making and then discussed any differences between the notes and made revisions as necessary to create one note. Heath Wei , 12/02/22 , 14:00 [place]ER[place] KAMARA Dec 02, 2022 08:21 HEATH WEI DO Dec 02, 2022 14:00
[2022-12-02 08:24] VITALS: BP 115/70
[2022-12-02] MEDS: inSUlin DETERMIR 1 UNIT/0.01 ML (CHARGE PER UNIT) SQ SCH ×2 (08:46→21:09)
[2022-12-02] MEDS: FLUoxetine 10 MG CAPSULE/TABLET PO SCH (08:46)
[2022-12-02] MEDS: PANTOPRAZOLE 40 MG TABLET PO SCH (08:46)
[2022-12-02] MEDS: NICOTINE 14 MG PATCH TD SCH (08:46)
[2022-12-02] MEDS: SENNOSIDES 8.6 MG TABLET PO SCH (08:46)
[2022-12-02] MEDS: LORATADINE 10 MG TABLET PO SCH (08:46)
[2022-12-02] MEDS: PREGABALIN 100 MG CAPSULE PO SCH ×4 (08:47→20:21)
[2022-12-02] MEDS: fentaNYL INJECTION 100 MCG/2 ML VIAL IVP PRN (08:47)
[2022-12-02] MEDS: MUPIROCIN 2% OINTMENT 22 GM TUBE TOP SCH ×2 (08:48→20:24)
[2022-12-02] MEDS: MICONAZOLE 2% POWDER 90 GM TOP SCH ×2 (08:48→20:24)
[2022-12-02] MEDS: PATCH REMOVAL TP SCH (08:48)
[2022-12-02] MEDS ORDERED: BISACODYL 10 MG SUPPOSITORY PR NR (10:30)
[2022-12-02] MEDS ORDERED: OMEP40CA6 PO (11:00)
[2022-12-02] MEDS ORDERED: LISI10TA25 PO (11:01)
[2022-12-02] MEDS ORDERED: FLUO10CA33 PO (11:01)
[2022-12-02] MEDS ORDERED: PREG100C PO (11:01)
[2022-12-02] MEDS ORDERED: SENN-234 PO (11:02)
[2022-12-02] MEDS ORDERED: SIMV40TA25 PO (11:02)
[2022-12-02] MEDS ORDERED: LORA-1389 PO (11:02)
[2022-12-02] MEDS ORDERED: PRAM0.5T9 PO (11:03)
[2022-12-02] MEDS ORDERED: EZET10TA17 PO (11:03)
[2022-12-02] MEDS ORDERED: DOCU100C37 PO (11:04)
[2022-12-02] MEDS ORDERED: LUMA42CA PO (11:04)
[2022-12-02] MEDS ORDERED: ALPR2TAB6 PO (11:04)
[2022-12-02] MEDS ORDERED: INSU300I3 SQ (11:05)
[2022-12-02] MEDS ORDERED: INSU100V3 SQ (11:05)
[2022-12-02] MEDS ORDERED: HYDR50CA3 PO (11:07)
[2022-12-02] MEDS ORDERED: FLUT12AE6 IH (11:08)
[2022-12-02] MEDS ORDERED: IPRA4AER IH (11:08)
[2022-12-02 12:16] VITALS: BP 124/71
--- NOTE | 2022-12-02 14:38 | Progress Note - Hospitalist ---
Subjective HPI/CC On Admission Date Seen by Provider: Dec 02, 2022 Nuvia Coffman is a 57 year old female with PMH HTN, T2DM on insulin, HLD, GERD, anxiety, depression, super obesity, who presented with groin pain. She reports having abscesses in her groin for the past 4 months. She has developed new lesions in her groin and on her arm. She reports drainage from one of them. She denies fevers and chills. She has had abdominal pain. She denies diarrhea. She has had nausea and vomiting. She denies chest pain and shortness of breath. Subjective/Events-last exam pt reports being worried about pain. Her pain is currently controlled but she's worried she's going to have it. Discussed the importance of getting off IV pain medication because we need to prep for DC home. Objective Exam Vital Signs Vital Signs Date Time Temp Pulse Resp B/P (MAP) Pulse Ox O2 Delivery O2 Flow Rate FiO2 12/02/22 12:16 36.3 77 19 124/71 (88) 95 Nasal Cannula 5.00 Capillary Refill : Less Than 3 Seconds General Appearance: No Apparent Distress Respiratory: Lungs Clear, No Respiratory Distress Cardiovascular: Regular Rate, Rhythm, No Murmur Neurologic/Psychiatric: Alert, Oriented x3 Results/Procedures Lab Patient resulted labs reviewed. Imaging: Reviewed Imaging Report Assessment/Plan Assessment and Plan Assess & Plan/Chief Complaint Sepsis Cellulitis Abscess UTI Switch to oral abx Surgery consulted, no need for I&D as is draining per Dr Wei Wound care saw as well Continue pain regimen Discussed importance of getting off IV pain medication in preparation for DC tomorrow T2DM Severe insulin resistance Decreased dose insulin regimen Levemir 50 units BID Novolog 20 units with meals Sliding scale C Neuropathy Chronic pain Continue home meds HTN HLD Anxiety Depression Continue home meds DVT prophylaxis: SHERON Mir MD Dec 02, 2022 14:38
[2022-12-02] MEDS: IBUPROFEN 600 MG TABLET PO PRN ×2 (14:51→21:11)
[2022-12-02 16:00] VITALS: BP 120/72
[2022-12-02 19:43] VITALS: BP 151/76
[2022-12-02] MEDS: CEPHALEXIN 250 MG CAPSULE PO SCH (20:21)
[2022-12-02] MEDS: PRAMIPEXOLE 0.5 MG TABLET PO SCH (20:21)
[2022-12-02 23:31] VITALS: BP 137/78
[2022-12-03] MEDS: ENOXAPARIN 60 MG/0.6 ML SYRINGE SC SCH ×2 (00:10→11:15)
[2022-12-03] MEDS: oxyCODONE IMMEDIATE RELEASE 5 MG TABLET PO PRN ×2 (03:52→08:49)
[2022-12-03 03:56] VITALS: BP 137/81
[2022-12-03] MEDS: inSUlin ASPART 1 UNIT/0.01 ML (PER UNIT) SC SCH ×4 (05:14→12:24)
[2022-12-03 08:38] VITALS: BP 161/82
[2022-12-03] MEDS: RT-Ipratropium/Albuterol NEB 3 ML VIAL INH SCH (08:48)
[2022-12-03] MEDS: SENNOSIDES 8.6 MG TABLET PO SCH (08:48)
[2022-12-03] MEDS: PANTOPRAZOLE 40 MG TABLET PO SCH (08:48)
[2022-12-03] MEDS: NICOTINE 14 MG PATCH TD SCH (08:49)
[2022-12-03] MEDS: PATCH REMOVAL TP SCH (08:49)
[2022-12-03] MEDS: MUPIROCIN 2% OINTMENT 22 GM TUBE TOP SCH (08:49)
[2022-12-03] MEDS: FLUoxetine 10 MG CAPSULE/TABLET PO SCH (08:49)
[2022-12-03] MEDS: LORATADINE 10 MG TABLET PO SCH (08:49)
[2022-12-03] MEDS: inSUlin DETERMIR 1 UNIT/0.01 ML (CHARGE PER UNIT) SQ SCH (08:49)
[2022-12-03] MEDS: MICONAZOLE 2% POWDER 90 GM TOP SCH (08:49)
[2022-12-03] MEDS: PREGABALIN 100 MG CAPSULE PO SCH ×2 (08:49→12:24)
[2022-12-03] MEDS: CEPHALEXIN 250 MG CAPSULE PO SCH (08:50)
[2022-12-03] MEDS ORDERED: ACETAMINOPHEN 325 MG/10.15 ML ORAL SOLN UDC PO PRN (10:00)
[2022-12-03 12:30] VITALS: BP 121/73
[2022-12-03] MEDS ORDERED: DOXY100T2 PO (12:37)
[2022-12-03] MEDS ORDERED: OXC5T PO ×3 (12:37→13:05)
[2022-12-03] MEDS ORDERED: INSU100I14 SQ (12:37)
[2022-12-03] MEDS ORDERED: INSU100I88 SQ (12:37)
[2022-12-03] MEDS ORDERED: CEPH250C PO (12:37)
[2022-12-03] MEDS ORDERED: MUPI22OI2 TOP (12:37)
[2022-12-03] MEDS ORDERED: MICO90PO TOP (12:37)
--- NOTE | 2022-12-03 12:54 | Discharge Summary ---
Diagnosis/Chief Complaint Date of Admission Nov 28, 2022 at 08:03 Date of Discharge Admission Diagnosis Sepsis due to cellulitis and abscess Primary Care No,Local Physician Discharge Diagnosis (1) Severe sepsis Status: Acute (2) Abscess Status: Acute (3) Cellulitis Status: Acute (4) Lactic acidosis Status: Acute (5) T2DM (type 2 diabetes mellitus) Status: Acute (6) HTN (hypertension) Status: Chronic (7) HLD (hyperlipidemia) Status: Chronic (8) Anxiety and depression Status: Chronic (9) Super obesity Status: Chronic Discharge Summary Discharge Physical Exam Allergies: Coded Allergies: Sulfa (Sulfonamide Antibiotics) (Verified Allergy, Intermediate, HIVES , 11/27/22) diazepam (Verified Allergy, Unknown, MUSCLE STIFFNESS, 11/27/22) haloperidol (Verified Allergy, Unknown, MUSCLE STIFFNESS, 11/27/22) Vitals & I&Os Vital Signs Date Time Temp Pulse Resp B/P (MAP) Pulse Ox O2 Delivery O2 Flow Rate FiO2 12/03/22 12:30 36.0 70 20 121/73 (89) 96 Nasal Cannula 5.00 Hospital Course Labs (last 24 hrs) Laboratory Tests 12/02/22 16:35: Glucometer 134H 12/02/22 21:03: Glucometer 146H 12/03/22 05:10: Glucometer 262H 12/03/22 11:05: Glucometer 240H Microbiology 11/28/22 Blood Culture - Preliminary, Resulted 11/28/22 Urine Culture - Final, Complete Escherichia coli Patient resulted labs reviewed. Pending Labs Laboratory Tests 12/03/22 05:10: Glucometer 262 12/03/22 11:05: Glucometer 240 Imaging: Reviewed Imaging Report Discharge Home Medications: Active Scripts Active Novolog Flexpen (Insulin Aspart) 100 Unit/Ml (3 Ml) Solution 20 Units SQ AC Levemir Flexpen (Insulin Detemir) 100 Unit/Ml (3 Ml) Insuln.pen 40 Unit SQ BID Doxycycline Hyclate 100 Mg Tablet 100 Mg PO BID@ Cephalexin 250 Mg Capsule 500 Mg PO BID Oxyir Tablet (Oxycodone HCl) 5 Mg Tab 5-10 Mg PO Q3H PRN Lotrimin AF (Miconazole Nitrate) 2 % Powder 0 Gm TOP BID apply to affected areas Mupirocin 2 % Oint...g. 0 Gm TOP BID apply sparingly to labial abscess BID Reported Advair Hfa 230-21 Mcg Inhaler (Fluticasone/Salmeterol) 230 Mcg-21 Mcg/Actuation Hfa.aer.ad 2 Puff IH DAILY Combivent Respimat Inhal [place] (Albuterol/Ipratropium) 20 Mcg-100 Mcg/Actuation Aero 2 Puff IH QID Hydroxyzine Pamoate 50 Mg Capsule 50 Mg PO HS PRN Alprazolam 2 Mg Tablet 2 Mg PO DAILY PRN 7 Days [place]ta (Lumateperone Tosylate) 42 Mg Capsule 42 Mg PO HS Docusate Sodium 100 Mg Capsule 100 Mg PO BID Zetia (Ezetimibe) 10 Mg Tablet 10 Mg PO HS Pramipexole Dihydrochloride (Pramipexole Di-HCl) 0.5 Mg Tablet 0.5 Mg PO HS Loratadine 10 Mg Tab.rapdis 10 Mg PO DAILY Senna (Sennosides) 8.6 Mg Tablet 8.6 Mg PO BID Simvastatin 40 Mg Tablet 40 Mg PO HS Lisinopril 10 Mg Tablet 10 Mg PO DAILY Lyrica (Pregabalin) 100 Mg Capsule 200 Mg PO BID Fluoxetine HCl 10 Mg Capsule 10 Mg PO DAILY Omeprazole 40 Mg Capsule.dr 40 Mg PO DAILY Instructions to patient/family Please see electronic discharge instructions given to patient. Problem Qualifiers (1) T2DM (type 2 diabetes mellitus): Diabetes mellitus ocean transportation intermediary insulin use: with skilled nursing use Diabetes mellitus complication status: with hyperglycemia Qualified Codes: E11.65 - Type 2 diabetes mellitus with hyperglycemia; Z79.4 - halfway (current) use of insulin SHERON RASHEED MD Dec 03, 2022 12:54
--- NOTE | 2022-12-03 12:57 | Discharge Inst-Simple/Standard ---
Discharge Inst-Standard Discharge Medications New, Converted or Re-Newed RX: Transmitted to Pharmacy Patient Instructions/Follow Up Plan of Care/Instructions/FU: Please continue to take your medications as written. Please follow up with your primary care doctor to follow up this hospital stay. Activity as Tolerated: Yes Discharge Diet: ADA Diet Return to The Hospital For: Chest pain, shortness of breath, fever, weakness, if you feel you are getting worse. SHERON RASHEED MD Dec 03, 2022 12:57
[2022-12-03 14:26] VITALS: BP 121/73
== END 2022-12-03 14:28 | disposition home or self-care (01) | DRG 872 ==
LOC: ER 22:46 → 4TH 11-28 08:03
PROVIDERS: ADMIT Internal Medicine; ATTEND Family Medicine
DX: A41.9 Sepsis, unspecified organism (principal); N76.4 Abscess of vulva; L02.411 Cutaneous abscess of right axilla; L02.611 Cutaneous abscess of right foot; N39.0 Urinary tract infection, site not specified; Z68.43 Body mass index [BMI] 50.0-59.9, adult; E87.20 Acidosis, unspecified; N76.2 Acute vulvitis; R65.20 Severe sepsis without septic shock; L73.2 Hidradenitis suppurativa; E11.65 Type 2 diabetes mellitus with hyperglycemia; I10 Essential (primary) hypertension; F17.210 Nicotine dependence, cigarettes, uncomplicated; G62.9 Polyneuropathy, unspecified; F41.9 Anxiety disorder, unspecified; F32.A Depression, unspecified; J44.9 Chronic obstructive pulmonary disease, unspecified; E78.5 Hyperlipidemia, unspecified; K21.9 Gastro-esophageal reflux disease without esophagitis; G89.29 Other chronic pain; E88.81 Metabolic syndrome and other insulin resistance; E66.9 Obesity, unspecified; Z88.0 Allergy status to penicillin; Z88.2 Allergy status to sulfonamides; Z91.09 Other allergy status, other than to drugs and biological substances
CPT/HCPCS: 36415; 71045; 72192; 76881; 80048; 80053; 80202; 80306; 80320; 81000; 82947; 83605; 83735; 85007; 85025; 85027; 85610; 85652; 85730; 86141; 87040; 87077; 87088; 87186; 93041; 94640; 94760; 96361; 96365; 96366; 96375